=== PATIENT | male | born 1955 | race Caucasian/White ===

== ENCOUNTER 2016-09-11 18:36 | Emergency (ER) | payer MEDICARE, MEDICAID ==
[~2016-09-11] VITALS: Ht 172.7 cm; Wt 81.6 kg
[~2016-09-11 18:36] MED LIST: ATEN25TA PO; ATEN50TA PO; BNZT1T PO; CLOZ100T7 PO; CLOZ150T PO; CLOZAPINE PO; COGENTIN PO; FURO20TA4; FURO20TA4 PO; KCL20TCR PO; PRM25T PO; TRAM50TA2 PO; TRM50T PO; [UNRECOGNIZED DRUG - REMARK]
[2016-09-11] MEDS ORDERED: RT-ALBUTEROL/IPRATROPIUM 3 ML (DUONEB) VIAL INH ONE (19:00)
[2016-09-11] MEDS ORDERED: NS IV 1000 ML 1,000 ML IV SCH ×2 (19:00→21:15)
--- NOTE | 2016-09-11 19:02 | ED Cough/URI ---
General Chief Complaint: Cough/Cold/Flu Symptoms Stated Complaint: WEAKNESS, COUGHING Source: patient Exam Limitations: no limitations History of Present Illness Time seen by provider: 19:01 Initial Comments To ER with a cough and feeling poorly. This is been ongoing for several days. Cough is productive. Denies fevers. He is accompanied to ER by his ex- who does most of the speaking for him. He is schizophrenic and lives alone and is likely noncompliant with his medications. He does smoke 2 packs of cigarettes per day according to his ex- Nuha. He reports to me that he did stop taking his medication "several days ago". Timing/Duration: constant Severity/Quality: productive cough Prior Episodes/Possible Cause: no prior episodes Associated Symptoms: cough Allergies and Home Medications Allergies Coded Allergies: No Known Drug Allergies (Unverified , 03/21/12) Home Medications Atenolol 25 Mg Tablet 25 MG PO DAILY (Reported) Benztropine Mesylate 1 Mg Tab 1 MG PO BID (Reported) Clozapine 100 Mg Tablet 250 MG PO HS (Reported) TAKES 2 & 1/2 (100MG) TABLETS Clozapine 100 Mg Tablet 100 MG PO AM (Reported) Furosemide 20 Mg Tablet 20 MG PO DAILY (Reported) Potassium Chloride 20 Meq Tab #30 20 MEQ PO BID Prescribed by: TERRY SIFUENTES on 03/24/15 0725 Tramadol Hcl 50 Mg Tab 50 MG PO Q12H PRN PRN PAIN (Reported) Constitutional: see HPI malaise weakness EENTM: see HPI Respiratory: see HPI cough Cardiovascular: no symptoms reported Genitourinary: no symptoms reported Musculoskeletal: no symptoms reported Skin: no symptoms reported Psychiatric/Neurological: No Symptoms Reported Hematologic/Lymphatic: No Symptoms Reported Immunological/Allergic: no symptoms reported Past Kpsbnfa-Tkllkc-Jqtftu Hx Patient Social History Alcohol Use: Denies Use Recreational Drug Use: No Smoking Status: Current Everyday Smoker Recent Foreign Travel: No Contact w/Someone Who Travel: No Recent Hopitalizations: Yes Physical Abuse Screen: No Sexual Abuse: No Immunizations Up To Date Tetanus Booster (TDap): Unknown PED Vaccines UTD: No Surgeries HX Surgeries: Yes Respiratory Hx Respiratory Disorders: Yes Respiratory Disorders: Sleep Apnea, COPD Cardiovascular Hx Cardiac Disorders: No Neurological Hx Neurological Disorders: No Reproductive System Hx Reproductive Disorders: No Genitourinary Hx Genitourinary Disorders: No Gastrointestinal Hx Gastrointestinal Disorders: Yes (colon resection? pt not sure what was done) Musculoskeletal Hx Musculoskeletal Disorders: Yes Musculoskeletal Disorders: Chronic Back Pain Endocrine Hx Endocrine Disorders: No HEENT HX ENT Disorders: No Cancer Hx Cancer: No Psychosocial Hx Psychiatric Problems: Yes (PARANOID SCHIZOPHRENIC) Behavioral Health Disorders: Sleep Difficulties, Anxiety, Schizophrenia Integumentary HX Skin/Integumentary Disorder: No Blood Transfusions Hx Blood Disorders: No Family Medical History Significant Family History: No Pertinent Family Hx Family Medial History: Physical Exam Vital Signs Vital Sign - Last 12Hours 09/11/16 09/11/16 18:57 19:10 Temp 97.1 Pulse 94 Resp 18 B/P 130/79 Pulse Ox 93 O2 Delivery Room Air Capillary Refill : General Appearance: WD/WN no apparent distress Eyes: Bilateral Eye EOMI, Bilateral Eye Normal Inspection, Bilateral Eye PERRL HEENT: PERRL/EOMI normal ENT inspection Neck: non-tender full range of motion Respiratory: no respiratory distress no accessory muscle use rhonchi wheezing Cardiovascular: regular rate, rhythm no murmur Gastrointestinal: normal bowel sounds non tender soft Extremities: normal range of motion non-tender Neurologic/Psychiatric: alert normal mood/affect oriented x 3 Skin: normal color warm/dry Progress/Results/Core Measures Results/Orders Lab Results Laboratory Tests Test 09/11/16 19:06 09/11/16 21:45 Range/Units Alanine Aminotransferase (ALT/SGPT) 20 0-55 U/L Albumin 4.3 3.2-4.5 G/DL Alkaline Phosphatase 134 40-136 U/L Anion Gap 16 H 5-14 MMOL/L Aspartate Amino Transf (AST/SGOT) 22 5-34 U/L BUN/Creatinine Ratio 25 Band Neutrophils 3 % Basophils # (Auto) 0.0 0.0-0.1 10^3/uL Basophils % (Manual) 0 % Basophils (%) (Auto) 0 0-10 % Blood Morphology Comment NORMAL Blood Urea Nitrogen 15 7-18 MG/DL Calcium Level 9.1 8.5-10.1 MG/DL Carbon Dioxide Level 19 L 21-32 MMOL/L Chloride Level 108 H 98-107 MMOL/L Creatinine 0.61 0.60-1.30 MG/DL Eosinophils # (Auto) 0.0 0.0-0.3 10^3/uL Eosinophils % (Manual) 0 % Eosinophils (%) (Auto) 0 0-10 % Estimat Glomerular Filtration Rate > 60 Glucose Level 89 70-105 MG/DL Hematocrit 46 40-54 % Hemoglobin 16.3 13.3-17.7 G/DL Lymphocytes # (Auto) 1.8 1.0-4.0 X 10^3 Lymphocytes % (Manual) 21 % Lymphocytes (%) (Auto) 11 L 12-44 % Mean Corpuscular Hemoglobin 32 25-34 PG Mean Corpuscular Hemoglobin Concent 35 32-36 G/DL Mean Corpuscular Volume 90 80-99 FL Mean Platelet Volume 8.4 7.4-10.4 FL Monocytes # (Auto) 1.5 H 0.0-1.0 X 10^3 Monocytes % (Manual) 5 % Monocytes (%) (Auto) 9 0-12 % Neutrophils # (Auto) 13.3 H 1.8-7.8 X 10^3 Neutrophils % (Manual) 71 % Neutrophils (%) (Auto) 80 H 42-75 % Phenytoin (Dilantin) Level < 0.5 L 10.0-20.0 UG/ML Platelet Count 233 130-400 10^3/uL Potassium Level 3.8 3.6-5.0 MMOL/L Red Blood Count 5.13 4.35-5.85 10^6/uL Red Cell Distribution Width 13.1 10.0-14.5 % Sodium Level 143 135-145 MMOL/L Total Bilirubin 1.0 0.1-1.0 MG/DL Total Protein 6.5 6.4-8.2 G/DL White Blood Count 16.6 H 4.3-11.0 10^3/uL Ur Tricyclic Antidepressants Screen NEGATIVE NEGATIVE Urine Amphetamines Screen NEGATIVE NEGATIVE Urine Bacteria NONE /HPF Urine Barbiturates Screen POSITIVE H NEGATIVE Urine Benzodiazepines Screen NEGATIVE NEGATIVE Urine Bilirubin NEGATIVE NEGATIVE Urine Cannabinoids Screen NEGATIVE NEGATIVE Urine Casts NONE /LPF Urine Clarity SLIGHTLY CLOUDY Urine Cocaine Screen NEGATIVE NEGATIVE Urine Color YELLOW Urine Crystals NONE /LPF Urine Culture Indicated NO Urine Glucose (UA) NEGATIVE NEGATIVE Urine Ketones 4+ H NEGATIVE Urine Leukocyte Esterase 2+ H NEGATIVE Urine Methadone Screen NEGATIVE NEGATIVE Urine Methamphetamines Screen NEGATIVE NEGATIVE Urine Mucus NEGATIVE /LPF Urine Nitrite NEGATIVE NEGATIVE Urine Opiates Screen NEGATIVE NEGATIVE Urine Oxycodone Screen NEGATIVE NEGATIVE Urine Phencyclidine Screen NEGATIVE NEGATIVE Urine Propoxyphene Screen NEGATIVE NEGATIVE Urine Protein 1+ H NEGATIVE Urine RBC 25-50 H /HPF Urine RBC (Auto) 5+ H NEGATIVE Urine Specific [place] 1.020 1.016-1.022 Urine Urobilinogen 4 H NORMAL MG/DL Urine WBC 2-5 /HPF Urine pH 6 5-9 My Orders Orders-RANDELL BLAKE APRN Cbc With Automated Diff (09/11/16 18:59) Comprehensive Metabolic Panel (09/11/16 18:59) Chest Pa/Lat (2 View) (09/11/16 18:59) Saline Lock/Iv-Start (09/11/16 18:59) Albuterol/Ipra Inhalation Soln (Duoneb I (09/11/16 19:00) Svn Sm Volume Nebulizer Rt-Rfs (09/11/16 18:59) Ns Iv 1000 Ml (Sodium Chloride 0.9%) (09/11/16 19:00) Phenytoin (Dilantin) (09/11/16 19:20) Manual Differential (09/11/16 19:06) Ua Culture If Indicated (09/11/16 19:36) Drug Screen Stat (Urine) (09/11/16 19:36) Ns Iv 1000 Ml (Sodium Chloride 0.9%) (09/11/16 21:15) Amoxicillin/Clavulanate Tablet (Augmenti (09/11/16 22:15) Medications Given in ED Current Medications Medications Dose Ordered Sig/Clare Route Start Time Stop Time Status Last Admin Dose Admin Albuterol/ Ipratropium 3 ml ONCE ONCE INH 09/11/16 19:00 09/11/16 19:01 DC 09/11/16 19:10 3 ML Vital Signs/I&O Vital Sign - Last 12Hours 09/11/16 09/11/16 18:57 19:10 Temp 97.1 Pulse 94 Resp 18 B/P 130/79 Pulse Ox 93 95 O2 Delivery Room Air Diagnostic Imaging Diagonstic Imaging: Xray Plain Films/CT/US/NM/MRI: chest Comments NAME: ARAM CHEN MED REC#: [id number] PT STATUS: REG ER : 1955 PHYSICIAN: RANDELL BLAKE APRN ADMIT DATE: 09/11/16/ER Draft Date of Exam:09/11/16 CHEST PA/LAT (2 VIEW) INDICATION: Cough with flu symptoms. Comparison with 04/10/2015. FINDINGS: PA and lateral views show the lungs to be well-aerated and clear. The heart is not enlarged. The pulmonary vasculature is normal. No pneumothorax or pleural effusion. IMPRESSION: No acute abnormalities. No findings to suggest pneumonia. Dictated on workstation # [id number] Dict: 09/11/16 1929 Trans: 09/11/16 193 MARKO [id number] Interpreted by: MAX HI MD Electronically signed by: Departure Impression Impression: Primary Impression: Dehydration Additional Impressions: Bronchitis Schizophrenia Disposition: HOME, SELF-CARE Condition: Stable (Physical) Departure-Patient Inst. Decision time for Depature: 22:11 Referrals: ROLANDO SIFUENTES MD (PCP/Family) Primary Care Physician Patient Instructions: Acute Bronchitis, Adult (DC) Add. Discharge Instructions: 1. Return to ER for any concerns 2. Follow-up with his doctor next week 3. Antibiotics as directed All discharge instructions reviewed with patient and/or family. Voiced understanding. Scripts Amoxicillin 500 Mg [id number] Mg PO TID #21 TAB Prov:RANDELL BLAKE AS400 PROGRAMMER 09/11/16 RANDELL BLAKE AS400 PROGRAMMER Sep 11, 2016 19:02
[2016-09-11 19:30] LABS: BASOPHILS % (AUTO) 0 % (0-10); EOSINOPHILS % (AUTO) 0 % (0-10); LYMPHOCYTES # (AUTO) 1.8 X 10^3 (1.0-4.0); LYMPHOCYTES % (AUTO) 11 % (12-44); MEAN CORPUSCULAR HEMOGLOBIN 32 PG (25-34); MEAN CORPUSCULAR HGB CONC 35 G/DL (32-36); MEAN CORPUSCULAR VOLUME 90 FL (80-99); MEAN PLATELET VOLUME 8.4 FL (7.4-10.4); MONOCYTES # (AUTO) 1.5 X 10^3 (0.0-1.0); MONOCYTES % (AUTO) 9 % (0-12); NEUTROPHILS # (AUTO) 13.3 X 10^3 (1.8-7.8); NEUTROPHILS % (AUTO) 80 % (42-75); PLATELET COUNT 233 10^3/uL (130-400); RED BLOOD COUNT 5.13 10^6/uL (4.35-5.85); RED CELL DISTRIBUTION WIDTH 13.1 % (10.0-14.5); WHITE BLOOD COUNT 16.6 10^3/uL (4.3-11.0)
[2016-09-11 19:33] LABS: ALANINE AMINOTRANSFERASE 20 U/L (0-55); ALBUMIN 4.3 G/DL (3.2-4.5); ANION GAP 16 MMOL/L (5-14); ASPARTATE AMINO TRANSFERASE 22 U/L (5-34); BLOOD UREA NITROGEN 15 MG/DL (7-18); BUN/CREATININE RATIO 25; CALCIUM 9.1 MG/DL (8.5-10.1); CARBON DIOXIDE 19 MMOL/L (21-32); CHLORIDE 108 MMOL/L (98-107); CREATININE SERUM 0.61 MG/DL (0.60-1.30); GFR ESTIMATED > 60; GLUCOSE 89 MG/DL (70-105); POTASSIUM 3.8 MMOL/L (3.6-5.0); SODIUM 143 MMOL/L (135-145); TOTAL PROTEIN 6.5 G/DL (6.4-8.2)
--- NOTE | 2016-09-11 19:33 | Diagnostic Imaging Report ---
INDICATION: Cough with flu symptoms. Comparison with 04/10/2015. FINDINGS: PA and lateral views show the lungs to be well-aerated and clear. The heart is not enlarged. The pulmonary vasculature is normal. No pneumothorax or pleural effusion. IMPRESSION: No acute abnormalities. No findings to suggest pneumonia. Dictated by: Dictated on workstation # [id number]
[2016-09-11 19:59] LABS: BAND NEUTROPHILS 3 %; BASOPHILS % (MANUAL) 0 %; EOSINOPHILS % (MANUAL) 0 %; LYMPHOCYTES % (MANUAL) 21 %; NEUTROPHILS % (MANUAL) 71 %
[2016-09-11 21:56] LABS: BILIRUBIN,URINE NEGATIVE (NEGATIVE); KETONES,URINE 4+ (NEGATIVE); LEUKOCYTE ESTERASE ,URINE 2+ (NEGATIVE); NITRITE,URINE NEGATIVE (NEGATIVE); PH,URINE 6 (5-9); PROTEIN,URINE 1+ (NEGATIVE); UROBILINOGEN,URINE 4 MG/DL (NORMAL)
[2016-09-11] MEDS ORDERED: AMOX500T2 PO (22:12)
[2016-09-11] MEDS ORDERED: AUGMENTIN 875 MG TAB (AMOXICILLIN/CLAVULANATE) PO SCH (22:15)
[2016-09-11 22:32] VITALS: BP 141/70
== END 2016-09-11 22:32 | disposition home or self-care (01) ==
LOC: EDUNIT# 18:36 → ER 18:38
DX: E86.0 Dehydration (principal); J44.0 Chronic obstructive pulmonary disease with (acute) lower respiratory infection; F20.9 Schizophrenia, unspecified; F17.210 Nicotine dependence, cigarettes, uncomplicated; Z79.899 Other long term (current) drug therapy
CPT/HCPCS: 36415; 71020; 80053; 80185; 80306; 81000; 85007; 85027; 94640; 96360; 96361

== ENCOUNTER 2017-10-23 18:58 | Emergency (ER) | payer MEDICARE, MEDICAID ==
[~2017-10-23] VITALS: Ht 167.6 cm; Wt 104.3 kg
[~2017-10-23 18:58] MED LIST changes: +AMOX500T2 PO
--- NOTE | 2017-10-23 19:37 | ED General ---
General Chief Complaint: General Problems/Pain Stated Complaint: "BUG INFESTATION" Source of Information: Patient (SPEECH VERY RAPID, MUMBLED AND MOSTLY UNINTELLIGIBLE--APPEARS TO BE UNDER THE INFLUENCE OF SOME SUBSTANCE/S.PT ALSO EVADES AND SOMETIMES REFUSES TO ANSWER QUESTIONS), Old Records, Other (EX- ARRIVES WITH PT ( SHE ALSO LIVES IN SAME [place] PT AND IS [employer]PER[employer]) AND SHE DOES SOME OF TALKING FOR PT) History of Present Illness Date Seen by Provider: Oct 23, 2017 Time Seen by Provider: 19:17 Initial Comments PT ARRIVES VIA POV WITH EX- SPEECH IS EXTREMELY DIFFICULT TO UNDERSTAND, RAPID/FAST/MUMBLING AND MOSTLY UNINTELLIGIBLE PT STATES "PARASITIC BEINGS ARE INVADING MY BODY" "THROUGH MY NOSE-THEY ARE HIDING IN MY NOSE AND GOING DOWN MY THROAT" UNABLE TO UNDER STAND LITTLE ELSE OF WHAT PT IS SAYING, BUT CAN MAKE OUT A FEW WORDS--"CEREBRAL CORTEX" AND "HYPOTHALAMUS" PT THOUGHT HE HAD LICE ( ALTHOUGH NO SYMPTOMS ON SCALP/HAIR) AND HAS TREATED HIMSELF WITH MEDICATION FOR HEAD LICE, AND TREATED HIS BEDDING AND CLOTHING FOR LICE NO ITCHING OR SORES ON SKIN HAS BEEN PUTTING GARLIC, OLIVE OIL AND VEGETABLE OIL IN HIS NOSE TO TRY TO KILL THEM PT DID FORCEFULLY COUGH UP A PIECE OF WHITE RICE--THINKS THAT IS PARASITE--EX- STATES HE ATE [employer] FOR DINNER TONIGHT. PT STATES SYMPTOMS HAVE BEEN GOING ON FOR 2-3 DAYS PT DENIES ANY DRUG USE. PT HAS HISTORY OF PARANOID SCHIZOPHRENIA AND NON-COMPLIANCY--NO PSYCH CARE, ONLY SEES DR. SIFUENTES. EX- STATES THIS IS PT'S NORMAL MENTATION/BEHAVIOR. SHE STATES HE HAS BEEN OFF ALL HIS ANTI-PSYCHOTICS FOR AT LEAST A YEAR. PCP: DR. SIFUENTES Allergies and Home Medications Allergies Coded Allergies: No Known Drug Allergies (Unverified , 03/21/12) Home Medications Amoxicillin 500 Mg Tablet, 500 MG PO TID Prescribed by: RANDELL BLAKE on 09/11/162211 Atenolol 25 Mg Tablet, 25 MG PO DAILY, (Reported) Benztropine Mesylate 1 Mg Tab, 1 MG PO BID, (Reported) Clozapine 100 Mg Tablet, 250 MG PO HS, (Reported) TAKES 2 & 1/2 (100MG) TABLETS Clozapine 100 Mg Tablet, 100 MG PO AM, (Reported) Fluconazole 40 Mg/1 Ml Susp.recon, 5 ML PO DAILY Prescribed by: KELLY MA on 10/23/172103 Furosemide 20 Mg Tablet, 20 MG PO DAILY, (Reported) Potassium Chloride 20 Meq Tab, 20 MEQ PO BID Prescribed by: TERRY SIFUENTES on 03/24/15 0725 Tramadol Hcl 50 Mg Tab, 50 MG PO Q12H PRN for PAIN, (Reported) Constitutional: no symptoms reported EENTM: see HPI Respiratory: no symptoms reported, No cough, No short of breath Cardiovascular: no symptoms reported Gastrointestinal: no symptoms reported, No abdominal pain, No loss of appetite , No nausea, No vomiting Genitourinary: no symptoms reported, other (STTATES HE WAS RECENTLY TREATED FOR UTI--[place] ANTIBIOTICS,AND NO SYMPTOMS NOW) Musculoskeletal: no symptoms reported Skin: see HPI, No pruritus, No rash Psychiatric/Neurological: See HPI, Denies Headache Hematologic/Lymphatic: No Symptoms Reported Immunological/Allergic: no symptoms reported Past Ouegxml-Bpectp-Lhdufm Hx Patient Social History Alcohol Use: Past History Recreational Drug Use: No Smoking Status: Current Everyday Smoker (2 PPD) Recent Foreign Travel: No Contact w/Someone Who Travel: No Recent Hopitalizations: Yes Immunizations Up To Date Tetanus Booster (TDap): Unknown PED Vaccines UTD: No Surgeries History of Surgeries: Yes (EGD/COLONOSCOPY; COLON RESECTION FOR BENIGN TUMOR; PILONIDAL CYST X 2) Surgeries: Abdominal, Appendectomy, Bowel Surgery Respiratory History of Respiratory Disorde: Yes Respiratory Disorders: Sleep Apnea, COPD Cardiovascular History of Cardiac Disorders: Yes Cardiac Disorders: Chronic Edema/Swelling Neurological History of Neurological Disord: No Reproductive System Hx Reproductive Disorders: No Genitourinary History of Genitourinary Disor: No Gastrointestinal History of Gastrointestinal Di: Yes (COLON RESECTION FOR BENIGN TUMOR) Musculoskeletal History of Musculoskeletal Dis: Yes Musculoskeletal Disorders: Chronic Back Pain Endocrine History of Endocrine Disorders: No HEENT History of HEENT Disorders: No Cancer History of Cancer: No Psychosocial History of Psychiatric Problem: Yes (NON-COMPLIANT WITH MEDICATIONS) Behavioral Health Disorders: Sleep Difficulties, Anxiety, Schizophrenia Integumentary History of Skin or Integumenta: No Blood Transfusions History of Blood Disorders: No Family Medical History Significant Family History: No Pertinent Family Hx Family Medial History: Physical Exam Vital Signs Vital Signs - First Documented 10/23/17 19:31 Temp 99.0 Pulse 123 Resp 20 B/P (MAP) 200/128 (152) Pulse Ox 98 Capillary Refill : General Appearance: Other (UNKEMPT, CONSTANT MOVEMENTS--CANNOT SIT OR LAY OR STAND STILL, SPEECH VERY RAPID, MUMBLING AND MOSTLY UNINTELLIGIBLE. ) HEENT: PERRL/EOMI, TMs Normal, Other (POOR DENTITION ; DRY ORAL MUCOSA. POSTERIOR PHARYNX WITH WHITE COATING, BUT NOT TONGUE OR BUCCALMUCOSA OR TONSILS. ) Neck: Full Range of Motion, Normal Inspection, Non Tender, Supple Respiratory: Normal Breath Sounds, No Accessory Muscle Use, No Respiratory Distress Cardiovascular: Regular Rate, Rhythm, No Edema, No Murmur, Normal Peripheral Pulses Gastrointestinal: Non Tender, Soft Back: Normal Inspection Extremity: Normal Range of Motion Neurologic/Psychiatric: Alert, No Motor/Sensory Deficits (GROSSLY INTACT), stave block splitter II-XII Norm as Tested, Other Skin: Normal Color, Warm/Dry, Other (NO SORES OR EVIDENCE OF ANY INSECT BITES OR LICE OR OTHER PARASITES) Progress/Results/Core Measures Suspected Sepsis SIRS Temperature: Pulse: Respiratory Rate: Laboratory Tests 10/23/17 19:54: White Blood Count 10.5 Blood Pressure / Mean: Laboratory Tests 10/23/17 19:54: Creatinine 0.82, Platelet Count 250, Total Bilirubin 0.4 Results/Orders Lab Results Laboratory Tests Test 10/23/17 19:54 10/23/17 20:28 Range/Units White Blood Count 10.5 4.3-11.0 10^3/uL Red Blood Count 4.90 4.35-5.85 10^6/uL Hemoglobin 16.0 13.3-17.7 G/DL Hematocrit 46 40-54 % Mean Corpuscular Volume 93 80-99 FL Mean Corpuscular Hemoglobin 33 25-34 PG Mean Corpuscular Hemoglobin Concent 35 32-36 G/DL Red Cell Distribution Width 12.4 10.0-14.5 % Platelet Count 250 130-400 10^3/uL Mean Platelet Volume 8.7 7.4-10.4 FL Neutrophils (%) (Auto) 58 42-75 % Lymphocytes (%) (Auto) 29 12-44 % Monocytes (%) (Auto) 11 0-12 % Eosinophils (%) (Auto) 1 0-10 % Basophils (%) (Auto) 1 0-10 % Neutrophils # (Auto) 6.2 1.8-7.8 X 10^3 Lymphocytes # (Auto) 3.0 1.0-4.0 X 10^3 Monocytes # (Auto) 1.2 H 0.0-1.0 X 10^3 Eosinophils # (Auto) 0.1 0.0-0.3 10^3/uL Basophils # (Auto) 0.1 0.0-0.1 10^3/uL Sodium Level 138 135-145 MMOL/L Potassium Level 3.8 3.6-5.0 MMOL/L Chloride Level 101 98-107 MMOL/L Carbon Dioxide Level 26 21-32 MMOL/L Anion Gap 11 5-14 MMOL/L Blood Urea Nitrogen 11 7-18 MG/DL Creatinine 0.82 0.60-1.30 MG/DL Estimat Glomerular Filtration Rate > 60 BUN/Creatinine Ratio 13 Glucose Level 124 H 70-105 MG/DL Calcium Level 9.3 8.5-10.1 MG/DL Total Bilirubin 0.4 0.1-1.0 MG/DL Aspartate Amino Transf (AST/SGOT) 20 5-34 U/L Alanine Aminotransferase (ALT/SGPT) 21 0-55 U/L Alkaline Phosphatase 133 40-136 U/L Total Protein 6.6 6.4-8.2 GM/DL Albumin 4.1 3.2-4.5 GM/DL TSH [place] Testing 1.81 0.35-4.94 UIU/ML Serum Alcohol < 10 <10 MG/DL Urine Color YELLOW Urine Clarity CLEAR Urine pH 7 5-9 Urine Specific [place] 1.010 L 1.016-1.022 Urine Protein NEGATIVE NEGATIVE Urine Glucose (UA) NEGATIVE NEGATIVE Urine Ketones NEGATIVE NEGATIVE Urine Nitrite NEGATIVE NEGATIVE Urine Bilirubin NEGATIVE NEGATIVE Urine Urobilinogen NORMAL NORMAL MG/DL Urine Leukocyte Esterase 1+ H NEGATIVE Urine RBC (Auto) 2+ H NEGATIVE Urine RBC 2-5 H /HPF Urine WBC 0-2 /HPF Urine Squamous Epithelial Cells 0-2 /HPF Urine Renal Epithelial Cells NONE /HPF Urine Crystals NONE /LPF Urine Bacteria NEGATIVE /HPF Urine Casts NONE /LPF Urine Mucus NEGATIVE /LPF Urine Culture Indicated NO Urine Opiates Screen NEGATIVE NEGATIVE Urine Oxycodone Screen NEGATIVE NEGATIVE Urine Methadone Screen NEGATIVE NEGATIVE Urine Propoxyphene Screen NEGATIVE NEGATIVE Urine Barbiturates Screen NEGATIVE NEGATIVE Ur Tricyclic Antidepressants Screen POSITIVE H NEGATIVE Urine Phencyclidine Screen NEGATIVE NEGATIVE Urine Amphetamines Screen NEGATIVE NEGATIVE Urine Methamphetamines Screen NEGATIVE NEGATIVE Urine Benzodiazepines Screen NEGATIVE NEGATIVE Urine Cocaine Screen NEGATIVE NEGATIVE Urine Cannabinoids Screen NEGATIVE NEGATIVE My Orders Orders - KELLY MA DO Alcohol (10/23/17 19:24) Cbc With Automated Diff (10/23/17 19:24) Comprehensive Metabolic Panel (10/23/17 19:24) Drug Screen Stat (Urine) (10/23/17 19:24) Thyroid Analyzer (10/23/17 19:24) Ua Culture If Indicated (10/23/17 19:24) Throat Culture (10/23/17 19:24) Ct Head Wo (10/23/17 19:43) Vital Signs/I&O Vital Sign - Last 12Hours 10/23/17 10/23/17 19:31 21:12 Temp 99.0 99.0 Pulse 123 123 Resp 20 20 B/P (MAP) 200/128 (152) 200/128 (152) Pulse Ox 98 98 Capillary Refill : Progress Note : Progress Note NO DETERIORATION IN PT'S CONDITION DURING ER STAY Diagnostic Imaging Comments CT HEAD--NO ACUTE PROCESS, PER RADIOLOGIST REPORT Reviewed: Reviewed by Me Departure Impression Impression: Primary Impression: Thrush, oral Additional Impressions: Paranoid schizophrenia, chronic condition PSYCHOGENIC PARASITOSIS Delusions of parasitosis Non-compliance Disposition: 01 HOME, SELF-CARE Condition: Stable Departure-Patient Inst. Referrals: ROLANDO SIFUENTES MD (PCP/Family) Primary Care Physician Patient Instructions: Thrush (DC) Add. Discharge Instructions: FOLLOW UP WITH DR. SIFUENTES THIS WEEK FOR FURTHER CARE SALINE SPRAY IN NOSE 3-4 TIMES A DAY NEEDED FOR SYMPTOMS All discharge instructions reviewed with patient and/or family. Voiced understanding. Scripts Fluconazole (Diflucan) 40 Mg/1 Ml Susp.recon 5 ML PO DAILY for 15 Days, #75 ML Prov: KELLY MA DO 10/23/17 KELLY MA DO Oct 23, 2017 19:37
[2017-10-23 20:18] LABS: BASOPHILS # (AUTO) 0.1 10^3/uL (0.0-0.1); BASOPHILS % (AUTO) 1 % (0-10); EOSINOPHILS # (AUTO) 0.1 10^3/uL (0.0-0.3); EOSINOPHILS % (AUTO) 1 % (0-10); HEMATOCRIT 46 % (40-54); LYMPHOCYTES % (AUTO) 29 % (12-44); MEAN CORPUSCULAR HEMOGLOBIN 33 PG (25-34); MEAN CORPUSCULAR HGB CONC 35 G/DL (32-36); MEAN CORPUSCULAR VOLUME 93 FL (80-99); MEAN PLATELET VOLUME 8.7 FL (7.4-10.4); MONOCYTES # (AUTO) 1.2 X 10^3 (0.0-1.0); MONOCYTES % (AUTO) 11 % (0-12); NEUTROPHILS # (AUTO) 6.2 X 10^3 (1.8-7.8); NEUTROPHILS % (AUTO) 58 % (42-75); PLATELET COUNT 250 10^3/uL (130-400); RED CELL DISTRIBUTION WIDTH 12.4 % (10.0-14.5); WHITE BLOOD COUNT 10.5 10^3/uL (4.3-11.0)
--- NOTE | 2017-10-23 20:20 | Diagnostic Imaging Report ---
PROCEDURE: CT head without contrast. TECHNIQUE: Multiple contiguous axial images were obtained through the brain without the use of intravenous contrast. DATE: 10/23/2017. COMPARISON: MRI brain 04/11/2015. CT head 04/10/2015. INDICATION: 62-year-old male, altered mental status. FINDINGS: There are areas of low-attenuation in the periventricular white matter which are nonspecific but most likely relate to changes of chronic small vessel ischemic disease. The ventricles and cerebral spinal fluid spaces are of normal size and configuration for the patient's age. There is no mass effect or midline shift. There is no acute intracranial hemorrhage. There is no abnormal extra-axial fluid collection. The visualized portions of the paranasal sinuses, mastoid air cells and middle ears are well aerated. IMPRESSION: 1. No identified acute intracranial abnormality. 2. Mild probable changes of chronic small vessel ischemic disease. Dictated by: Dictated on workstation # [id number]
[2017-10-23 20:24] LABS: ALANINE AMINOTRANSFERASE 21 U/L (0-55); ALBUMIN 4.1 GM/DL (3.2-4.5); ALKALINE PHOSPHATASE 133 U/L (40-136); BILIRUBIN,TOTAL 0.4 MG/DL (0.1-1.0); BUN/CREATININE RATIO 13; CALCIUM 9.3 MG/DL (8.5-10.1); CARBON DIOXIDE 26 MMOL/L (21-32); CHLORIDE 101 MMOL/L (98-107); CREATININE SERUM 0.82 MG/DL (0.60-1.30); GFR ESTIMATED > 60; GLUCOSE 124 MG/DL (70-105); POTASSIUM 3.8 MMOL/L (3.6-5.0); SODIUM 138 MMOL/L (135-145); TOTAL PROTEIN 6.6 GM/DL (6.4-8.2)
[2017-10-23 20:33] LABS: BILIRUBIN,URINE NEGATIVE (NEGATIVE); CLARITY,URINE CLEAR; COLOR,URINE YELLOW; GLUCOSE, URINE (UA) NEGATIVE (NEGATIVE); KETONES,URINE NEGATIVE (NEGATIVE); LEUKOCYTE ESTERASE ,URINE 1+ (NEGATIVE); NITRITE,URINE NEGATIVE (NEGATIVE); PH,URINE 7 (5-9); PROTEIN,URINE NEGATIVE (NEGATIVE); UROBILINOGEN,URINE NORMAL (NORMAL)
[2017-10-23 20:44] LABS: TSH (THYROID ANALYZER) 1.81 UIU/ML (0.35-4.94)
[2017-10-23 20:47] LABS: BACTERIA,URINE NEGATIVE /HPF; SQUAMOUS EPITHELIAL CELL,UR 0-2 /HPF; WBC,URINE 0-2 /HPF
[2017-10-23 20:49] LABS: AMPHETAMINE SCREEN, URINE NEGATIVE (NEGATIVE); BENZODIAZEPINES SCREEN URINE NEGATIVE (NEGATIVE); COCAINE SCREEN URINE NEGATIVE (NEGATIVE)
[2017-10-23 20:50] LABS: BARBITURATE SCREEN URINE NEGATIVE (NEGATIVE); CANNABINOID SCREEN, URINE NEGATIVE (NEGATIVE); METHADONE STAT NEGATIVE (NEGATIVE); METHAMPHETAMINE SCREEN URINE S NEGATIVE (NEGATIVE); OPIATE SCREEN URINE NEGATIVE (NEGATIVE); OXYCODONE STAT NEGATIVE (NEGATIVE); PROPOXYPHENE STAT NEGATIVE (NEGATIVE); TRICYCLIC ANTIDEPRESSANTS SCRE POSITIVE (NEGATIVE)
[2017-10-23] MEDS ORDERED: NYST1000 PO (21:03)
[2017-10-23] MEDS ORDERED: FLUC40SU PO (21:04)
[2017-10-23 21:12] VITALS: BP 200/128
== END 2017-10-23 21:12 | disposition home or self-care (01) ==
LOC: EDUNIT# 18:58 → ER 19:00
DX: B37.0 Candidal stomatitis (principal); F20.0 Paranoid schizophrenia; F22 Delusional disorders; F41.9 Anxiety disorder, unspecified; F17.210 Nicotine dependence, cigarettes, uncomplicated; Z91.14 Patient's other noncompliance with medication regimen; Z86.012 Personal history of benign carcinoid tumor; Z90.49 Acquired absence of other specified parts of digestive tract
CPT/HCPCS: 36415; 70450; 80053; 80306; 80320; 81000; 84443; 85025; 87070

== ENCOUNTER 2018-05-30 05:32 | Outpatient (CLI) | payer MEDICARE, MEDICAID ==
[~2018-05-30] VITALS: Ht 167.6 cm; Wt 104.3 kg
[~2018-05-30 05:32] MED LIST changes: +FLUC40SU PO; +NYST1000 PO
[2018-05-30] MEDS ORDERED: ST.300TA3 PO (11:42)
== END 2018-05-30 11:58 | disposition home or self-care (01) ==
LOC: PREOP 05:32
PROVIDERS: ATTEND Surgery
DX: Z01.818 Encounter for other preprocedural examination (principal)

== ENCOUNTER 2018-08-02 12:15 | Outpatient (CLI) | payer MEDICARE ==
[~2018-08-02] VITALS: Ht 167.6 cm; Wt 104.3 kg
[~2018-08-02 12:15] MED LIST changes: +ST.300TA3 PO
[2018-08-02] MEDS ORDERED: AMIT25TA9 PO (12:23)
[2018-08-03] MEDS ORDERED: HYDR-34 PO (15:54)
== END 2018-08-02 12:33 ==
LOC: PREOP 12:15
PROVIDERS: ATTEND Surgery
DX: Z01.818 Encounter for other preprocedural examination (principal)

== ENCOUNTER 2018-08-03 10:26 | Inpatient (IN) | payer MEDICARE ==
[~2018-08-03] VITALS: Ht 170.2 cm; Wt 97.5 kg
[~2018-08-03 10:26] MED LIST changes: +AMIT25TA9 PO
--- NOTE | 2018-08-03 10:38 | Progress Note-Pre Operative ---
Pre-Operative Progress Note H&P Reviewed The H&P was reviewed, patient examined and no changes noted. Date Seen by Provider: Aug 03, 2018 Time Seen by Provider: 10: Date H&P Reviewed: Aug 03, 2018 Time H&P Reviewed: 10:30 Pre-Operative Diagnosis: symptomatic reducible ventral abd inc hernia AKIN DANIEL MD Aug 03, 2018 10:38
[2018-08-03] MEDS ORDERED: morphine INJ 10 MG/ML 1ML (SYR OR VIAL) IVP PRN (10:45)
[2018-08-03] MEDS ORDERED: ONDANSETRON 4 MG/2 ML (SDV) Z0FRAN IVP PRN ×2 (10:45→16:15)
[2018-08-03] MEDS ORDERED: ACETAMINOPHEN 325 MG TABLET PO PRN (10:45)
[2018-08-03] MEDS ORDERED: LACTATED RINGERS 1,000 ML IV PRN ×2 (10:52)
[2018-08-03 11:10] VITALS: BP 148/97
[2018-08-03 11:29] LABS: BASOPHILS % (AUTO) 0 % (0-10); EOSINOPHILS # (AUTO) 0.1 10^3/uL (0.0-0.3); EOSINOPHILS % (AUTO) 1 % (0-10); HEMATOCRIT 50 % (40-54); HEMOGLOBIN 17.8 G/DL (13.3-17.7); LYMPHOCYTES # (AUTO) 1.9 X 10^3 (1.0-4.0); LYMPHOCYTES % (AUTO) 29 % (12-44); MEAN CORPUSCULAR HEMOGLOBIN 33 PG (25-34); MEAN CORPUSCULAR HGB CONC 35 G/DL (32-36); MEAN CORPUSCULAR VOLUME 92 FL (80-99); MONOCYTES # (AUTO) 0.6 X 10^3 (0.0-1.0); MONOCYTES % (AUTO) 9 % (0-12); NEUTROPHILS # (AUTO) 3.9 X 10^3 (1.8-7.8); NEUTROPHILS % (AUTO) 61 % (42-75); PLATELET COUNT 212 10^3/uL (130-400); RED BLOOD COUNT 5.47 10^6/uL (4.35-5.85); RED CELL DISTRIBUTION WIDTH 13.2 % (10.0-14.5); WHITE BLOOD COUNT 6.5 10^3/uL (4.3-11.0)
[2018-08-03] MEDS ORDERED: fentaNYL INJECTION 100 MCG/2 ML AMP ONE (11:38)
[2018-08-03] MEDS ORDERED: MIDAZOLAM 2 MG/2 ML (VERSED) VIAL ONE (11:38)
[2018-08-03] MEDS ORDERED: FAMOTIDINE 20MG/2ML IV (PEPCID) IVP ONE (11:45)
[2018-08-03] MEDS ORDERED: FAMOTIDINE 20MG/2ML IV (PEPCID) ONE (11:50)
[2018-08-03] MEDS ORDERED: BUP/EPI 0.5% 1:200,000 (SENSORCAINE) 30 ML VIAL ONE (12:04)
[2018-08-03] MEDS ORDERED: LIDOCAINE PF 2% 5 ML (XYLOCAINE) VIAL ONE (12:18)
[2018-08-03] MEDS ORDERED: SEVOFLURANE (ULTANE) 15 ML INHAL SOLN ONE ×8 (12:18→15:48)
[2018-08-03] MEDS ORDERED: SUCCINYLCHOLINE INJ 100 MG/5 ML SYR ONE (12:18)
[2018-08-03] MEDS ORDERED: ONDANSETRON 4 MG/2 ML (SDV) Z0FRAN ONE (12:18)
[2018-08-03] MEDS ORDERED: proPOfol 200 MG/20 ML (DIPRIVAN) VIAL IV ONE (12:18)
[2018-08-03] MEDS ORDERED: DEXAMETHASONE 10 MG/ML (DECADRON) 1 ML VIAL ONE (12:18)
[2018-08-03] MEDS ORDERED: CITRIC ACID/SOB CIT (BICITRA) 30 ML UDC PO ONE (12:30)
[2018-08-03] MEDS ORDERED: ROCURONIUM 10 MG/ML 5 ML SYRINGE IV ONE (13:26)
[2018-08-03] MEDS: ceFAZolin INJECTION 1,000 MG in NS (IVPB) 50 ML IV ONE ×2 (14:02→14:30)
[2018-08-03] MEDS ORDERED: ATROPINE INJ 0.4 MG/ML SDV ONE (14:47)
[2018-08-03] MEDS ORDERED: GLYCOPYRROLATE 0.2 MG/ML (ROBINUL) 2 ML VIAL ONE ×2 (14:47→15:27)
[2018-08-03] MEDS ORDERED: NEOSTIGMINE 1 MG/ML 5 ML SYRINGE ONE (15:31)
--- NOTE | 2018-08-03 15:50 | Progress Note-Post Operative ---
Post-Operative Progess Note Surgeon (s)/Inspector Aide (s) Surgeon AKIN DANIEL MD Inspector Aide: joaquin srinivasan PLASTIC FABRICATOR Pre-Operative Diagnosis symptomatic reducible ventral abd inc hernia Post-Operative Diagnosis symptomatic reducible recurrent ventral abd inc hernia. Procedure & Operative Findings Date of Procedure 08/03/18 Procedure Performed/Findings exploratory laparotomy, explantation mesh, open repair recurrent incisional hernia with mesh Anesthesia Type GET Estimated Blood Loss Estimated blood loss (mL): minimal Specimens/Packing Specimens Removed hernia sac and mesh. AKIN DANIEL MD Aug 03, 2018 15:50
[2018-08-03] MEDS ORDERED: HYDR-34 PO (15:54)
--- NOTE | 2018-08-03 15:56 | Discharge Inst-Surgical ---
D/C Lap Instructions-MARÍA New, Converted, or Re-Newed RX: RX on Chart Follow Up Appt in 2 weeks Activity as tolerated No driving for 24 hours No [address] while on pain medications Incentive Spirometry use every 2 hours while awake Regular Diet Symptoms to Report: Fever over 101 degree F, Nausea/Vomiting Infection Signs and Symptoms to report: Increased redness, Foul odor of wound, Increased drainage Bathing instructions: May shower Operative Area Clean/Dry; Keep incision clean/dry If any problems/questions: Contact your physician or go to Emergency Room AKIN DANIEL MD Aug 03, 2018 15:56
[2018-08-03] MEDS ORDERED: morphine INJ 10 MG/ML 1ML (SYR OR VIAL) IVP ONE (16:15)
[2018-08-03] MEDS ORDERED: FLU QUADRIvalent (5+ YOA) 2018-2019 (AFLURIA) 0.5 ML IM ONE (18:45)
[2018-08-03] MEDS: oxyCODONE/APAP 5/325MG (PERCOCET 5) TABLET PO PRN (19:27)
--- NOTE | 2018-08-03 20:35 | OPERATIVE REPORT ---
DATE OF SERVICE: 08/03/2018 ATTENDING PRIMARY CARE PHYSICIAN: Dr. Cook. PREOPERATIVE DIAGNOSIS: Symptomatic reducible incisional hernia. POSTOPERATIVE DIAGNOSIS: Symptomatic recurrent reducible incisional hernia. PROCEDURE: Exploratory laparotomy, excision of old mesh, placement and repair of hernia defect with mesh. SURGEON: Akin Daniel MD PSYCHOLOGIST PERSONNEL: Everett Samson APRN. ANESTHESIA: General endotracheal. ESTIMATED BLOOD LOSS: 100 mL. FINDINGS: Old large midline laparotomy incision from a previous hemicolectomy with a symptomatic recurrent incisional hernia identified with large mesh within the hernia sac, which was explanted. DISPOSITION: The patient tolerated the procedure well. INDICATIONS: The patient is a 63-year-old male who was accompanied by his ex- in the office. This gentleman has a history of schizophrenia, does require help and guidance on an everyday basis for normal functioning. He does answer the majority of questions appropriately; however, does go on significant tangents during conversation. He was found to have an incisional hernia and he did not report any previous hernia identified. He states that approximately 20 years ago, a lesion was identified on the colon. Open right hemicolectomy was performed for benign lesion. In the office, he was found to have a palpable lesion, which was of significant size and reducible and painful to palpation consistent with an incisional hernia. Multiple attempts at scheduling the patient for surgery were made; however, the patient did not show up. However, he did this time around. We cannot elicit any further history. However, based on the findings intraoperatively, this was a recurrent incisional hernia due to a large mesh that was encompassing the majority of the recurrent hernia sac. DESCRIPTION OF PROCEDURE: The patient was brought to the operating room, laid supine on the table. After adequate IV pain and sedative medications and general endotracheal intubation, the abdomen was prepped and draped in standard surgical fashion. A 0.5% Marcaine with epinephrine was then used to anesthetize the overlying skin in the midline epigastric region. A vertical skin incision was then made using a 15 blade. The subcutaneous tissue was then dissected using electrocautery. The hernia sac was identified and dissected out. A very hard contracted structure was identified, which shows consistent with old Prolene suture as well as a contracted mesh within the hernia sac. Because of the previous mesh encompassed the majority of the hernia sac, it was decided to proceed with excision of the mesh. We did have to extend the incision inferiorly and proceeded with an exploratory laparotomy and took down adhesions to the mesh and then the entire mesh was explanted using blunt dissection as well as Metzenbaum scissors as well as electrocautery. Good hemostasis was observed and the fascial edges were then cleared off above the fascia using electrocautery. An 11 x 16 cm coated lightweight polypropylene mesh was then placed in the defect and concentrically sutured in a transfascial manner using 0 Prolene sutures without any tension. Good hemostasis was observed. The subcutaneous tissue was then reapproximated using 3-0 Vicryl interrupted sutures. Skin was closed using 4-0 Monocryl running subcuticular suture. Wounds were then cleaned and covered with gauze, tape and abdominal binder. The patient tolerated the procedure well. Due to his history of schizophrenia and the dependence physically and mentally, we will admit him for a 23-hour observation for adequate pain control and for help with ambulation and DVT prophylaxis as well as proper alimentation and medication. Job ID: [id number] DocumentID: [id number] Dictated Date: 08/03/2018 16:04:14 Lead Teacher Date: 08/03/2018 20:35:18 Dictated By: AKIN DANIEL MD MTDD
[2018-08-04 00:24] VITALS: BP 147/64
[2018-08-04 03:47] VITALS: BP 119/66
[2018-08-04 08:00] VITALS: BP 127/55
[2018-08-04] MEDS: oxyCODONE/APAP 5/325MG (PERCOCET 5) TABLET PO PRN (10:01)
--- NOTE | 2018-08-04 13:08 | Progress Note (SOAP) ---
Subjective Date Seen by a Provider: Aug 04, 2018 Time Seen by a Provider: 12:00 Subjective/Events-last exam doing well. ambulating well. tolerating diet. good pain control with PO meds. Objective Exam Vital Signs Date Time Temp Pulse Resp B/P (MAP) Pulse Ox O2 Delivery O2 Flow Rate FiO2 08/04/18 08:00 97.8 100 20 127/55 (79) 94 Room Air 08/04/18 03:47 98.1 95 17 119/66 (83) 95 Room Air 08/04/18 00:24 98.1 101 14 147/64 (91) 94 I & O 08/04/18 07:00 Intake Total 1960 ml Balance 1960 ml Capillary Refill : General Appearance: No Apparent Distress HEENT: PERRL/EOMI Neck: Full Range of Motion Respiratory: Chest Non Tender, Lungs Clear, Normal Breath Sounds Cardiovascular: Regular Rate, Rhythm Gastrointestinal: normal bowel sounds, soft Extremity: Normal Capillary Refill Neurologic/Psychiatric: Alert, Oriented x3 Skin: Normal Color Lymphatic: No Adenopathy Assessment/Plan Assessment/Plan Assess & Plan/Chief Complaint s/p expl lap, expantation mesh, repair recurrent inc hernia with mesh. cont ambulation, home soon. no lifting/exertion 2 weeks. Clinical Quality Measures DVT/VTE Risk/Contraindication: Risk Factor Score Per Nursin RFS Level Per Nursing on Admit: 4+=Very High AKIN DANIEL MD Aug 04, 2018 13:08
--- NOTE | 2018-08-04 14:14 | Anesthesia-General Post-Op ---
General Patient Condition Mental Status/LOC: Same as Preop Cardiovascular: Satisfactory Nausea/Vomiting: Absent Respiratory: Satisfactory Pain: Controlled Complications: Absent Post Op Complications Complications None Follow Up Care/Instructions Patient Instructions None needed. Anesthesia/Patient Condition Patient Condition Patient is doing well, no complaints, stable vital signs, no apparent adverse anesthesia problems. No complications reported per nursing. BHAVESH ACHARYA CRNA Aug 04, 2018 14:14
== END 2018-08-04 12:05 | disposition home or self-care (01) | DRG 355 ==
LOC: 4TH 10:26 → SDC 10:26 → EDSTATUS 13:00 → 4TH 17:14 → SDC 17:14 → 4TH 08-04 12:05
PROVIDERS: ADMIT Surgery; ATTEND Surgery
PROC: 0WUF0JZ Supplement Abdominal Wall with Synthetic Substitute, Open Approach (ICD-10-PCS; principal; 2018-08-03 14:03)
PROC: 0WPF0JZ Removal of Synthetic Substitute from Abdominal Wall, Open Approach (ICD-10-PCS; principal; 2018-08-03 14:03)
DX: K43.2 Incisional hernia without obstruction or gangrene (principal); F20.9 Schizophrenia, unspecified; J44.9 Chronic obstructive pulmonary disease, unspecified; G47.33 Obstructive sleep apnea (adult) (pediatric); F17.210 Nicotine dependence, cigarettes, uncomplicated; Z79.899 Other long term (current) drug therapy
CPT/HCPCS: 36415; 85025; 87081; 88302; 94664

== ENCOUNTER 2018-08-12 10:15 | Emergency (ER) | payer MEDICARE ==
[~2018-08-12] VITALS: Ht 177.8 cm; Wt 99.8 kg
[~2018-08-12 10:15] MED LIST changes: +HYDR-34 PO
[2018-08-12] MEDS ORDERED: HYDROcodone/APAP 5 MG/325 MG (LORTAB) TAB PO ONE (11:00)
[2018-08-12] MEDS ORDERED: HYDR-4226 PO (11:02)
--- NOTE | 2018-08-12 11:02 | ED Abdominal Pain ---
General Stated Complaint: ABD PAIN POST SURGERY Source of Information: Patient Exam Limitations: No Limitations History of Present Illness Date Seen by Provider: Aug 12, 2018 Time Seen by Provider: 10:58 Initial Comments To ER with reports of incisional pain. Patient had repair of ventral hernia done on 08/14/[address] Daniel. Old mesh was removed and new mesh was replaced. Patient states that he ran out of his pain medication 3 days ago and has been having increased pain since then. He denies fevers or chills. No nausea or vomiting. No shortness of breath. He is having normal bowel movements. His only complaint is of pain as a result of running out of his pain medication pills Timing/Duration: 2-3 Days Severity/Quality: Moderate Location: Periumbilical Radiation: No Radiation Activities at Onset: None Associated Symptoms: No Fever/Chills, No Heartburn, No Nausea/Vomiting Allergies and Home Medications Allergies Coded Allergies: Phenothiazines (Verified Allergy, Unknown, 12/20/17) Home Medications Amitriptyline HCl 25 Mg Tablet, 25 MG PO DAILY, (Reported) Hydrocodone Bit/Acetaminophen 1 Ea Tablet, 1 EACH PO Q4H PRN for PAIN-MODERATE Prescribed by: AKIN DANIEL on 08/03/18 1554 Rubi's Wort 300 Mg Tablet, 300 MG PO DAILY, (Reported) Patient Home Medication List Home Medication List Reviewed: Yes Review of Systems Review of Systems Constitutional: see HPI; No chills, No fever EENTM: No Symptoms Reported Respiratory: No Symptoms Reported Cardiovascular: No Symptoms Reported Gastrointestinal: See HPI, Abdominal Pain; Denies Constipated, Denies Diarrhea , Denies Nausea Genitourinary: No Symptoms Reported Musculoskeletal: no symptoms reported Skin: no symptoms reported Psychiatric/Neurological: No Symptoms Reported Hematologic/Lymphatic: No Symptoms Reported Past Nqmpmif-Vysoqo-Dcceoq Hx Patient Social History Type Used: Cigarettes 2nd Hand Smoke Exposure: Yes Recent Hopitalizations: No Immunizations Up To Date Tetanus Booster (TDap): Unknown PED Vaccines UTD: No Seasonal Allergies Seasonal Allergies: No Past Medical History Surgeries: Yes (EGD/COLONOSCOPY; COLON RESECTION FOR BENIGN TUMOR; PILONIDAL CYST X 2) Abdominal, Appendectomy, Bowel Surgery Respiratory: Yes Sleep Apnea, COPD Currently Using CPAP: No Cardiac: Yes Chronic Edema/Swelling Neurological: No Reproductive Disorders: No Sexually Transmitted Disease: No HIV/AIDS: No Genitourinary: No Gastrointestinal: Yes (COLON RESECTION FOR BENIGN TUMOR) Irritable Bowel Musculoskeletal: Yes Chronic Back Pain Endocrine: No HEENT: No Loss of Vision: Denies Hearing Impairment: Denies Cancer: No Psychosocial: Yes (NON-COMPLIANT WITH MEDICATIONS) Sleep Difficulties, Anxiety, Schizophrenia Integumentary: No Blood Disorders: No Adverse Reaction/Blood Tranf: No (N/A) Family Medical History No Pertinent Family Hx Physical Exam Vital Signs Capillary Refill : Height/Weight/BMI Height: 5'7.00" Weight: 215lbs. 0.0oz. 97.355775br; 33.7 BMI Method:Estimated General Appearance: WD/WN, no apparent distress HEENT: PERRL/EOMI, normal ENT inspection Respiratory: no respiratory distress, no accessory muscle use Gastrointestinal: normal bowel sounds, soft, other (periumbilical incision is clean dry and intact. There is some mild surrounding ecchymosis but no erythema and no drainage.) Extremities: normal range of motion, non-tender Neurologic/Psychiatric: alert, normal mood/affect, oriented x 3 Skin: normal color, warm/dry Progress/Results/Core Measures Results/Orders My Orders Orders - RANDELL BLAKE APRN Hydrocodone/Apap 5/325 Tablet (Lortab 5 (08/12/18 11:00) Cbc With Automated Diff (08/12/18 10:57) Comprehensive Metabolic Panel (08/12/18 10:57) Departure Impression Primary Impression: Postoperative pain Disposition: HOME, SELF-CARE Condition: Stable Departure-Patient Inst. Decision time for Depature: 11:01 Referrals: ROLANDO SIFUENTES MD (PCP/Family) Primary Care Physician Patient Instructions: Postoperative Pain (DC) Add. Discharge Instructions: 1. Follow-up with Dr. Daniel. Call Tuesday to make an appointment to be seen 2. Return to ER for any vomiting fevers chills or constipation. Scripts Hydrocodone/Acetaminophen ([place] 5-325 Tablet) 1 Each Tablet 1 EACH PO Q6H PRN for PAIN-MODERATE MDD 10, #14 TAB Prov: RANDELL BLAKE APRN 08/12/18 Copy Copies To 1: AKIN DANIEL MD, PETER J APRN Aug 12, 2018 11:02
[2018-08-12 11:28] LABS: BASOPHILS % (AUTO) 0 % (0-10); EOSINOPHILS % (AUTO) 0 % (0-10); HEMATOCRIT 42 % (40-54); HEMOGLOBIN 14.7 G/DL (13.3-17.7); LYMPHOCYTES # (AUTO) 1.2 X 10^3 (1.0-4.0); LYMPHOCYTES % (AUTO) 11 % (12-44); MEAN CORPUSCULAR HEMOGLOBIN 33 PG (25-34); MEAN CORPUSCULAR HGB CONC 35 G/DL (32-36); MEAN CORPUSCULAR VOLUME 93 FL (80-99); MEAN PLATELET VOLUME 8.7 FL (7.4-10.4); MONOCYTES # (AUTO) 0.9 X 10^3 (0.0-1.0); MONOCYTES % (AUTO) 9 % (0-12); NEUTROPHILS # (AUTO) 8.4 X 10^3 (1.8-7.8); NEUTROPHILS % (AUTO) 80 % (42-75); PLATELET COUNT 253 10^3/uL (130-400); RED BLOOD COUNT 4.51 10^6/uL (4.35-5.85); RED CELL DISTRIBUTION WIDTH 12.6 % (10.0-14.5); WHITE BLOOD COUNT 10.6 10^3/uL (4.3-11.0)
[2018-08-12 11:58] LABS: ALANINE AMINOTRANSFERASE 13 U/L (0-55); ALBUMIN 3.6 GM/DL (3.2-4.5); ALKALINE PHOSPHATASE 86 U/L (40-136); BILIRUBIN,TOTAL 0.8 MG/DL (0.1-1.0); BUN/CREATININE RATIO 10; CALCIUM 9.3 MG/DL (8.5-10.1); CARBON DIOXIDE 24 MMOL/L (21-32); CHLORIDE 103 MMOL/L (98-107); CREATININE SERUM 0.72 MG/DL (0.60-1.30); GFR ESTIMATED > 60; GLUCOSE 142 MG/DL (70-105); POTASSIUM 4.1 MMOL/L (3.6-5.0); SODIUM 138 MMOL/L (135-145); TOTAL PROTEIN 6.2 GM/DL (6.4-8.2)
[2018-08-12 12:25] VITALS: BP 164/90
== END 2018-08-12 12:32 | disposition home or self-care (01) ==
LOC: EDUNIT# 10:15 → ER 10:17
DX: G89.18 Other acute postprocedural pain (principal); R10.33 Periumbilical pain; J44.9 Chronic obstructive pulmonary disease, unspecified; G47.30 Sleep apnea, unspecified; F41.9 Anxiety disorder, unspecified; F20.9 Schizophrenia, unspecified; Z91.14 Patient's other noncompliance with medication regimen; Z98.890 Other specified postprocedural states; Z88.8 Allergy status to other drugs, medicaments and biological substances; Z87.19 Personal history of other diseases of the digestive system; Z77.22 Contact with and (suspected) exposure to environmental tobacco smoke (acute) (chronic); Z90.49 Acquired absence of other specified parts of digestive tract
CPT/HCPCS: 36415; 80053; 85025; 99283

== ENCOUNTER 2018-10-07 17:29 | Emergency (ER) | payer MEDICARE ==
[~2018-10-07] VITALS: Ht 170.2 cm; Wt 101.2 kg
[~2018-10-07 17:29] MED LIST changes: +HYDR-4226 PO
[2018-10-07] MEDS ORDERED: OXYC1TAB87 PO (18:43)
--- NOTE | 2018-10-07 18:43 | ED General ---
General Chief Complaint: General Problems/Pain Stated Complaint: RAN OUT OF MEDICATION Nursing Triage Note: PT AMBULATES TO [facility] STATES OUT OF PAIN MEDS, CALLED TUESDAY AND NO ONE IN OFFICE. PT STATES HAS HERNIA AND SUPPOSE TO GET REPAIRED IN OCTOBER Nursing Sepsis Screen: No Definite Risk Source of Information: Patient Exam Limitations: No Limitations History of Present Illness Date Seen by Provider: Oct 07, 2018 Time Seen by Provider: 18:40 Initial Comments To ER per private vehicle with reports of being out of his Percocet. He has a large ventral hernia and is scheduled to have this repaired. He is not having any vomiting, he is passing gas and having bowel movements. He reports chronic unchanged pain in the abdomen from the hernia defect. He also like to get some diazepam. Timing/Duration: 1-2 Days Severity: Moderate Allergies and Home Medications Allergies Coded Allergies: Phenothiazines (Verified Allergy, Unknown, 12/20/17) Home Medications Amitriptyline HCl 25 Mg Tablet, 25 MG PO DAILY, (Reported) Hydrocodone Bit/Acetaminophen 1 Ea Tablet, 1 EACH PO Q4H PRN for PAIN-MODERATE Prescribed by: AKIN DANIEL on 08/03/18 1554 Hydrocodone/Acetaminophen 1 Each Tablet, 1 EACH PO Q6H PRN for PAIN-MODERATE Prescribed by: RANDELL BLAKE on 08/12/18 1102 Rubi's Wort 300 Mg Tablet, 300 MG PO DAILY, (Reported) Patient Home Medication List Home Medication List Reviewed: Yes Review of Systems Review of Systems Constitutional: see HPI EENTM: see HPI Respiratory: no symptoms reported Cardiovascular: no symptoms reported Gastrointestinal: abdominal pain Genitourinary: no symptoms reported Musculoskeletal: no symptoms reported Skin: no symptoms reported Psychiatric/Neurological: No Symptoms Reported Hematologic/Lymphatic: No Symptoms Reported Past Ydqeygp-Eaesvg-Tihzzi Hx Patient Social History Alcohol Use: Denies Use Recreational Drug Use: No Smoking Status: Current Everyday Smoker Type Used: Cigarettes 2nd Hand Smoke Exposure: Yes Recent Foreign Travel: No Contact w/Someone Who Travel: No Recent Infectious Disease Expo: No Recent Hopitalizations: No Immunizations Up To Date Tetanus Booster (TDap): Unknown PED Vaccines UTD: No Seasonal Allergies Seasonal Allergies: No Past Medical History Surgeries: Yes ( COLON RESECTION FOR BENIGN TUMOR; PILONIDAL CYST X 2) Abdominal, Appendectomy, Bowel Surgery Respiratory: Yes Sleep Apnea, COPD Currently Using CPAP: No Cardiac: Yes Chronic Edema/Swelling Neurological: No Reproductive Disorders: No Sexually Transmitted Disease: No HIV/AIDS: No Genitourinary: No Gastrointestinal: Yes (COLON RESECTION FOR BENIGN TUMOR) Irritable Bowel Musculoskeletal: Yes Chronic Back Pain Endocrine: No HEENT: No Loss of Vision: Denies Hearing Impairment: Denies Cancer: No Psychosocial: Yes (NON-COMPLIANT WITH MEDICATIONS) Sleep Difficulties, Anxiety, Schizophrenia Integumentary: No Blood Disorders: No Adverse Reaction/Blood Tranf: No (N/A) Family Medical History No Pertinent Family Hx Physical Exam Vital Signs Vital Signs - First Documented 10/07/18 18:06 Temp 97.2 Pulse 107 Resp 18 B/P (MAP) 143/93 (110) Pulse Ox 96 Capillary Refill : Less Than 3 Seconds Height, Weight, BMI Height: 5'7.00" Weight: 223lbs. 0.0oz. 101.588058iq; 33.7 BMI Method:Actual General Appearance: No Apparent Distress, WD/WN Eyes: Bilateral Eye Normal Inspection, Bilateral Eye PERRL, Bilateral Eye EOMI HEENT: PERRL/EOMI Respiratory: No Accessory Muscle Use, No Respiratory Distress Gastrointestinal: Non Tender, Soft, Other (there is a large ventral hernia present. Bowel sounds are positive.) Extremity: Normal Capillary Refill, Normal Inspection Neurologic/Psychiatric: Alert, Oriented x3 Progress/Results/Core Measures Suspected Sepsis Recent Fever Within 48 Hours: No Infection Criteria Present: None New/Unexplained Altered Menta: No Sepsis Screen: No Definite Risk SIRS Temperature:97.2 Pulse: 107 Respiratory Rate: 18 Blood Pressure 143 /93 Mean: 110 Results/Orders Vital Signs/I&O 10/07/18 18:06 Temp 97.2 Pulse 107 Resp 18 B/P (MAP) 143/93 (110) Pulse Ox 96 Capillary Refill : Less Than 3 Seconds Blood Pressure Mean: 110 Departure Impression Primary Impression: VENTRAL ABDOMINAL INCISIONAL HERNIA Disposition: 01 HOME, SELF-CARE Condition: Stable Departure-Patient Inst. Decision time for Depature: 18:42 Referrals: ROLANDO SIFUENTES MD (PCP/Family) Primary Care Physician Patient Instructions: CHRONIC PAIN Add. Discharge Instructions: 1. You'll need to follow-up with your primary care provider to discuss a prescription for diazepam. All discharge instructions reviewed with patient and/ or family. Voiced understanding. Scripts Oxycodone HCl/Acetaminophen (Percocet 5-325 mg Tablet) 1 Each Tablet 1 TAB PO Q6H for PAIN-MODERATE MDD 6, #20 TAB Prov: RANDELL BLAKE APRN 10/07/18 RANDELL BLAKE APRN Oct 07, 2018 18:43
[2018-10-07 18:48] VITALS: BP 143/93
== END 2018-10-07 18:53 | disposition home or self-care (01) ==
LOC: EDUNIT# 17:29 → ER 17:30
DX: K43.2 Incisional hernia without obstruction or gangrene (principal); G47.30 Sleep apnea, unspecified; J44.9 Chronic obstructive pulmonary disease, unspecified; F41.9 Anxiety disorder, unspecified; F20.9 Schizophrenia, unspecified; K58.9 Irritable bowel syndrome, unspecified; F17.210 Nicotine dependence, cigarettes, uncomplicated; Z88.8 Allergy status to other drugs, medicaments and biological substances; Z91.14 Patient's other noncompliance with medication regimen; Z90.89 Acquired absence of other organs; Z98.890 Other specified postprocedural states; Z90.49 Acquired absence of other specified parts of digestive tract
CPT/HCPCS: 99281

== ENCOUNTER 2018-11-13 09:01 | Outpatient (CLI) | payer MEDICARE ==
[~2018-11-13] VITALS: Ht 170.2 cm; Wt 101.2 kg
[~2018-11-13 09:01] MED LIST changes: +OXYC1TAB87 PO
[2018-11-13] MEDS ORDERED: OXYC-464 PO (14:25)
[2018-11-13] MEDS ORDERED: DIAZ5TAB3 PO (14:25)
== END 2018-11-13 14:36 | disposition home or self-care (01) ==
LOC: PREOP 09:01
PROVIDERS: ATTEND Surgery
DX: Z01.818 Encounter for other preprocedural examination (principal)

== ENCOUNTER 2018-11-16 07:59 | Inpatient (IN) | payer MEDICARE ==
[~2018-11-16] VITALS: Ht 170.2 cm; Wt 101.2 kg
[~2018-11-16 07:59] MED LIST changes: +DIAZ5TAB3 PO; +OXYC-464 PO
[2018-11-16 08:15] VITALS: BP 123/80
[2018-11-16] MEDS ORDERED: ceFAZolin 2 GM IV Premixed 50 ML IV ONE (08:15)
--- NOTE | 2018-11-16 08:18 | Progress Note-Pre Operative ---
Pre-Operative Progress Note H&P Reviewed The H&P was reviewed, patient examined and no changes noted. Date Seen by Provider: Nov 16, 2018 Time Seen by Provider: 08:15 Date H&P Reviewed: Nov 16, 2018 Time H&P Reviewed: 08:10 Pre-Operative Diagnosis: Symptomatic Incisional hernia OPAL MADERA APRN Nov 16, 2018 08:18
[2018-11-16] MEDS ORDERED: HYDR-3816 PO (08:22)
--- NOTE | 2018-11-16 08:24 | Discharge Inst-Surgical ---
D/C Lap Instructions-KIDO New, Converted, or Re-Newed RX: RX on Chart Follow Up Appt in 2 weeks Activity as tolerated No driving for 24 hours No driving while on pain medications Incentive Spirometry use every 2 hours while awake Regular Diet Symptoms to Report: Fever over 101 degree F, Nausea/Vomiting Infection Signs and Symptoms to report: Increased redness, Foul odor of wound, Increased drainage Bathing instructions: May shower Operative Area Clean/Dry; Keep incision clean/dry If any problems/questions: Contact your physician or go to Emergency Room OPAL MADERA APRN Nov 16, 2018 08:24
[2018-11-16] MEDS: LACTATED RINGERS 1,000 ML IV PRN ×2 (08:25→09:12)
[2018-11-16] MEDS ORDERED: morphine INJ 10 MG/ML 1ML (SYR OR VIAL) IVP PRN (08:30)
[2018-11-16] MEDS ORDERED: CATHETER FLUSH 10 ML SYR IV PRN (08:30)
[2018-11-16] MEDS ORDERED: ACETAMINOPHEN 325 MG TABLET PO PRN (08:30)
[2018-11-16] MEDS ORDERED: ONDANSETRON 4 MG/2 ML (SDV) Z0FRAN IVP PRN ×2 (08:30→11:30)
[2018-11-16 08:41] LABS: BASOPHILS % (AUTO) 0 % (0-10); EOSINOPHILS # (AUTO) 0.1 10^3/uL (0.0-0.3); EOSINOPHILS % (AUTO) 2 % (0-10); HEMATOCRIT 45 % (40-54); HEMOGLOBIN 15.3 G/DL (13.3-17.7); LYMPHOCYTES # (AUTO) 2.4 X 10^3 (1.0-4.0); LYMPHOCYTES % (AUTO) 36 % (12-44); MEAN CORPUSCULAR HEMOGLOBIN 31 PG (25-34); MEAN CORPUSCULAR HGB CONC 34 G/DL (32-36); MEAN CORPUSCULAR VOLUME 93 FL (80-99); MEAN PLATELET VOLUME 8.7 FL (7.4-10.4); MONOCYTES # (AUTO) 0.7 X 10^3 (0.0-1.0); MONOCYTES % (AUTO) 10 % (0-12); NEUTROPHILS # (AUTO) 3.3 X 10^3 (1.8-7.8); NEUTROPHILS % (AUTO) 51 % (42-75); PLATELET COUNT 187 10^3/uL (130-400); RED CELL DISTRIBUTION WIDTH 13.1 % (10.0-14.5); WHITE BLOOD COUNT 6.5 10^3/uL (4.3-11.0)
[2018-11-16] MEDS ORDERED: BUP/EPI 0.5% 1:200,000 (SENSORCAINE) 30 ML VIAL ONE (08:44)
[2018-11-16] MEDS ORDERED: NEOSTIGMINE 1 MG/ML 5 ML SYRINGE ONE (08:52)
[2018-11-16] MEDS ORDERED: GLYCOPYRROLATE 0.2 MG/ML (ROBINUL) 2 ML VIAL ONE (08:52)
[2018-11-16] MEDS ORDERED: ROCURONIUM 10 MG/ML 5 ML SYRINGE IV ONE ×2 (08:52→10:06)
[2018-11-16] MEDS ORDERED: SEVOFLURANE (ULTANE) 15 ML INHAL SOLN ONE ×2 (08:52→11:18)
[2018-11-16] MEDS ORDERED: ONDANSETRON 4 MG/2 ML (SDV) Z0FRAN ONE (08:52)
[2018-11-16] MEDS ORDERED: proPOfol 200 MG/20 ML (DIPRIVAN) VIAL IV ONE (08:52)
[2018-11-16] MEDS ORDERED: DEXAMETHASONE 10 MG/ML (DECADRON) 1 ML VIAL ONE (08:52)
[2018-11-16] MEDS ORDERED: LIDOCAINE PF 2% 5 ML (XYLOCAINE) VIAL ONE (08:52)
[2018-11-16] MEDS ORDERED: fentaNYL INJECTION 250 MCG/5 ML AMP ONE (08:53)
[2018-11-16] MEDS ORDERED: MIDAZOLAM 2 MG/2 ML (VERSED) VIAL ONE (08:53)
[2018-11-16] MEDS ORDERED: PHENYLEPHRINE 100 MCG/ML 10 ML (ANESTHESIA) SYR ONE (09:55)
[2018-11-16] MEDS ORDERED: morphine INJ 10 MG/ML 1ML (SYR OR VIAL) IVP ONE (11:30)
[2018-11-16] MEDS ORDERED: HYDROmorphone 2 MG/ML VIAL (DILAUDID) IV ONE (11:30)
--- NOTE | 2018-11-16 12:20 | NUR ---
TRANSFERRED FROM [facility] PER BED. ALERT AND COOPERATIVE [employer] WITH ISLAND DRESSING IN PLACE. SHADOWING ON DRESSING NOTED. ABD BINDER IN PLACE. DEEP BREATHING ENCOURAGED. COLOR PINK. SKIN W/D. RESP. REGULAR. RATED PAIN 02/05. IV SITE PER LEFT F/A IN PLACE.
[2018-11-16] MEDS: oxyCODONE/APAP 5/325MG (PERCOCET 5) TABLET PO PRN ×3 (12:54→23:04)
--- NOTE | 2018-11-16 14:15 | Anesthesia-General Post-Op ---
General Patient Condition Mental Status/LOC: Same as Preop Cardiovascular: Satisfactory Nausea/Vomiting: Absent Respiratory: Satisfactory Pain: Controlled Complications: Absent Post Op Complications Complications None Follow Up Care/Instructions Patient Instructions None needed. Anesthesia/Patient Condition Patient Condition Patient is doing well, no complaints, stable vital signs, no apparent adverse anesthesia problems. No complications reported per nursing. BHAVESH ACHARYA CRNA Nov 16, 2018 14:15
--- NOTE | 2018-11-16 15:34 | OPERATIVE REPORT ---
DATE OF SERVICE: 11/16/2018 ATTENDING PRIMARY CARE PHYSICIAN: Dr. Cook. PREOPERATIVE DIAGNOSIS: Large recurrent ventral abdominal incisional hernia, which is reducible. POSTOPERATIVE DIAGNOSIS: Large recurrent ventral abdominal incisional hernia, which is reducible with previous mesh within the hernia sac with the dimensions of the hernia approximately 12 x 12 cm in size. PROCEDURE: Open repair of recurrent ventral abdominal incisional hernia with mesh as well as explantation of previous mesh. SURGEON: Trell Dc MD. CLEANING TEAM MEMBER: Everett Samson APRN. ANESTHESIA: General endotracheal. ESTIMATED BLOOD LOSS: 100 mL. FINDINGS: Large recurrent ventral abdominal incisional hernia with the previous mesh as well as omentum and small bowel within the hernia sac. DISPOSITION: The patient tolerated the procedure well. INDICATIONS: The patient is a 63-year-old male known to us. We had seen him in the fall of 2017 for an incisional hernia, which was symptomatic. This gentleman does have a history of schizophrenia and does require some help and guidance for normal functioning; however, does answer the majority of questions appropriately. He was seen in the office and did have a symptomatic incisional hernia from a previous midline incision for an open right hemicolectomy for benign lesion. This was approximately 20 years ago. He did have a significant size incisional hernia, which was reducible; however, tender to palpation. Eventually, this surgery was scheduled; however, he did the patient appointments. Eventually, he did proceed with surgery on 07/04/2018. He did well after the surgery; however, due to his other medical needs, he was admitted overnight and discharged home the following day. We had seen him in the office for recurrent abdominal pain as well as a bulge. In the office, he was found to have a recurrent ventral abdominal incisional hernia, which was more off to the right from the previous hernia site. This was significant in size. The hernia was reducible; however, tender to palpation. He is otherwise eating well and having normal bowel movements. DESCRIPTION OF PROCEDURE: The patient was brought to the operating room and laid supine on the table. After adequate IV pain and sedative medications and general endotracheal intubation, the abdomen was prepped and draped in a standard surgical fashion. A 0.5% Marcaine with epinephrine was used to anesthetize the midline around the umbilicus and a skin incision was made along the previous incision line using a 15 blade. Subcutaneous tissue was then dissected using electrocautery. The hernia sac was identified and completely dissected out using blunt dissection as well as electrocautery. Good hemostasis was observed and the hernia sac was opened using Metzenbaum scissors. There were significant adhesions to the hernia sac, which included omentum and small bowel, which was completely dissected out using electrocautery as well as Metzenbaum scissors. There was a previous mesh within the hernia sac, which was also excised using blunt dissection, cautery as well as Metzenbaum scissors. Good hemostasis was observed. We then decided on the underlay mesh procedure with using a combination of absorbable tacks as well as sutures. There were significant adhesions to the peritoneal lining, which were then taken down using electrocautery as well as blunt dissection. Good hemostasis was observed. The fascial opening was approximately 12 x 12 cm. A 24 x 18 cm coated mesh was then placed into the defect. We then proceeded with circumferential placement of absorbable tacks concentrically around the mesh on the outer aspect. We then proceeded to place transfascial sutures to the mesh in a horizontal mattress fashion using 0 Prolene sutures. We then proceeded with placement of 0 Prolene transfascial sutures concentrically around the mesh using 0 Prolene sutures. Good hemostasis was observed. The subcutaneous tissue was then reapproximated using 3-0 Vicryl interrupted sutures. Skin was closed using skin piedad. The wound was then cleaned and covered with a pressure dressing followed by abdominal binder. The patient tolerated the procedure well. We will admit him for observation and proceed with adequate pain control with IV and oral pain medication and start a clear liquid diet and advance as tolerated. We will also instruct him to continue to wear the abdominal binder for at least the next 6 to 8 weeks. Job ID: [id number] DocumentID: [id number] Dictated Date: 11/16/2018 11:36:32 Staff [employer] Officer Date: 11/16/2018 15:33:35 Dictated By: MD RE SHULTZ
[2018-11-16 16:25] VITALS: BP 126/68
--- NOTE | 2018-11-16 17:00 | NUR ---
UP TO BATHROOM. VOIDED WITHOUT DIFFICULTY.
[2018-11-16 20:46] VITALS: BP 146/72
[2018-11-17] VITALS: BP 151/82
[2018-11-17 01:01] VITALS: BP 151/82
[2018-11-17] MEDS: oxyCODONE/APAP 5/325MG (PERCOCET 5) TABLET PO PRN ×2 (03:47→13:19)
[2018-11-17 04:15] VITALS: BP 140/74
[2018-11-17 08:00] VITALS: BP 132/68
[2018-11-17 12:00] VITALS: BP 150/76
--- NOTE | 2018-11-17 12:40 | NUR ---
dismissed per taxi service
--- NOTE | 2018-11-17 13:20 | NUR ---
ARAM CHEN demonstrates understanding of discharge instructions and accurately returns instructions upon questioning. Copy of Post-Discharge Instructions and Medication Discharge Instructions given to . ARAM CHEN is able to manage continuing needs after discharge. Patients belongings returned to patient. Skin dry and intact; no breakdown noted. Patient discharged from 427-1 on at . ARAM CHEN left floor via wheelchair, accompanied by staff.
== END 2018-11-17 13:20 | disposition home or self-care (01) | DRG 355 ==
LOC: SDC 07:59 → 4TH 12:20 → SDC 11-17 11:30 → 4TH 11-17 11:30 → UNDOADMIN 11-17 11:40 → 4TH 11-17 11:40 → UNDODISIN 11-17 13:20
PROVIDERS: ADMIT Surgery; ATTEND Surgery
PROC: 0WPF0JZ Removal of Synthetic Substitute from Abdominal Wall, Open Approach (ICD-10-PCS; 2018-11-16)
PROC: 0WUF0JZ Supplement Abdominal Wall with Synthetic Substitute, Open Approach (ICD-10-PCS; principal; 2018-11-16 08:58)
DX: K43.2 Incisional hernia without obstruction or gangrene (principal); F20.9 Schizophrenia, unspecified; F32.9 Major depressive disorder, single episode, unspecified; F41.9 Anxiety disorder, unspecified; G47.33 Obstructive sleep apnea (adult) (pediatric); J44.9 Chronic obstructive pulmonary disease, unspecified; F17.210 Nicotine dependence, cigarettes, uncomplicated; K58.9 Irritable bowel syndrome, unspecified; R60.9 Edema, unspecified; Z91.19 Patient's noncompliance with other medical treatment and regimen
CPT/HCPCS: 36415; 85025; 87081; 88302; 94664

== ENCOUNTER 2019-02-08 15:20 | Observation (INO) | payer MEDICARE ==
[~2019-02-08] VITALS: Ht 182.9 cm; Wt 104.0 kg
[~2019-02-08 15:20] MED LIST changes: +HYDR-3816 PO
[2019-02-08] MEDS ORDERED: NS IV 1000 ML 1,000 ML ONE ×2 (15:29→21:35)
--- NOTE | 2019-02-08 15:30 | NUR ---
This nurse asked pt for urine sample. Pt became irate and started yelling at nurse. Pt lunged at edge of bed toward nurse. When nurse asked pt to settle down and stop yelling, pt layed back down in bed.
[2019-02-08] MEDS ORDERED: NS IV 1000 ML 1,000 ML IV ONE (15:59)
[2019-02-08 16:05] LABS: BASOPHILS % (AUTO) 1 % (0-10); EOSINOPHILS # (AUTO) 0.1 10^3/uL (0.0-0.3); EOSINOPHILS % (AUTO) 1 % (0-10); HEMATOCRIT 50 % (40-54); HEMOGLOBIN 17.3 G/DL (13.3-17.7); LYMPHOCYTES # (AUTO) 2.1 X 10^3 (1.0-4.0); LYMPHOCYTES % (AUTO) 33 % (12-44); MEAN CORPUSCULAR HEMOGLOBIN 32 PG (25-34); MEAN CORPUSCULAR HGB CONC 35 G/DL (32-36); MEAN CORPUSCULAR VOLUME 91 FL (80-99); MEAN PLATELET VOLUME 8.7 FL (7.4-10.4); MONOCYTES # (AUTO) 0.6 X 10^3 (0.0-1.0); MONOCYTES % (AUTO) 10 % (0-12); NEUTROPHILS # (AUTO) 3.6 X 10^3 (1.8-7.8); NEUTROPHILS % (AUTO) 56 % (42-75); PLATELET COUNT 204 10^3/uL (130-400); WHITE BLOOD COUNT 6.4 10^3/uL (4.3-11.0)
--- NOTE | 2019-02-08 16:09 | NUR ---
Nurse requested urine sample from nurse. Pt declined.
[2019-02-08 16:20] LABS: ALANINE AMINOTRANSFERASE 21 U/L (0-55); ALBUMIN 4.3 GM/DL (3.2-4.5); ALKALINE PHOSPHATASE 119 U/L (40-136); BILIRUBIN,TOTAL 0.6 MG/DL (0.1-1.0); BUN/CREATININE RATIO 22; CALCIUM 9.8 MG/DL (8.5-10.1); CARBON DIOXIDE 27 MMOL/L (21-32); CHLORIDE 107 MMOL/L (98-107); CREATININE SERUM 1.05 MG/DL (0.60-1.30); GFR ESTIMATED > 60; GLUCOSE 196 MG/DL (70-105); POTASSIUM 3.7 MMOL/L (3.6-5.0); SALICYLATE < 5.0 MG/DL (5.0-20.0); SODIUM 143 MMOL/L (135-145)
[2019-02-08 16:21] LABS: ACETAMINOPHEN < 10 UG/ML (10-30)
--- NOTE | 2019-02-08 16:51 | ED General ---
General Chief Complaint: Altered Mental Status Stated Complaint: AMS Nursing Triage Note: Pt to ED via EMS. EMS reporst picking pt up at [facility]. EMS report being called by commercial construction estimator who reports pt had been walking around complex for approximately 30 minutes and was trying to open door knobs. Pt reportedly lives approximately one block from the area. EMS reports pt told EMS there is a beast in the pt's stomach. Upon arrival pt disheveled, slurring words and incoherent. Pt unable to answer questions for assessment. Pt barefoot. Nursing Sepsis Screen: No Definite Risk Source of Information: Patient, EMS Exam Limitations: Physical Impairments History of Present Illness Date Seen by Provider: Feb 08, 2019 Time Seen by Provider: 15:20 Initial Comments Here with report by EMS of altered mental status. Apparently he was walking around outside and was trying to open the doors and not acting right. Ultimately a bystander called EMS who then brought him here. Patient does not report anything significant although seems confused. He did say something about taking Benadryl although he is not stating that now. Unsure of last known well time or his typical mental status. Unable to determine any significant past medical history from the patient. He does follow commands and does not seem to have any focal weakness. This seems to be more centered about confusion. He is tachycardic in the rate of 110s. EMS was unable to provide other information and patient is unable to provide much information for himself. History per records miroslava suazo. I did speak with the patient's ex- who reports that he has been off his schizophrenia meds for the last year. He did take him for a while after his last admission at [facility]. He has been using Benadryl daily to help with his symptoms. Patient admits to this as well. He does not reports suicidal ideation. Timing/Duration: Other (unknown) Severity: Moderate Associated Systoms: Other (unknown) Allergies and Home Medications Allergies Coded Allergies: Phenothiazines (Verified Allergy, Unknown, 12/20/17) Home Medications Diazepam 5 Mg Tablet, 5 MG PO BID PRN for ANXIETY, (Reported) Hydrocodone/Acetaminophen 1 Each Tablet, 1-2 TAB PO Q4H Prescribed by: OPAL MADERA on 11/16/18 0822 Oxycodone HCl/Acetaminophen 1 Each Tablet, 1-2 EACH PO Q4H PRN for PAIN- MODERATE, (Reported) Rubi's Wort 300 Mg Tablet, 300 MG PO DAILY, (Reported) Patient Home Medication List Home Medication List Reviewed: Yes Review of Systems Review of Systems Constitutional: see HPI Unable to complete review of systems due to altered mental status All Other Systems Reviewed Negative Unless Noted: No Past Yuxznso-Woexyx-Wvsley Hx Past Med/Social Hx: Reviewed Nursing Past Med/Soc Hx Patient Social History Alcohol Use: Denies Use Recreational Drug Use: No Type Used: Cigarettes 2nd Hand Smoke Exposure: Yes Recent Foreign Travel: No Contact w/Someone Who Travel: No Recent Infectious Disease Expo: No Recent Hopitalizations: No Immunizations Up To Date Tetanus Booster (TDap): Unknown PED Vaccines UTD: No Date of Influenza Vaccine: May 29, 2018 Seasonal Allergies Seasonal Allergies: No Past Medical History Surgeries: Yes ( COLON RESECTION FOR BENIGN TUMOR; PILONIDAL CYST X 2, hernia ) Abdominal, Appendectomy, Bowel Surgery Respiratory: Yes Sleep Apnea, COPD Currently Using CPAP: No Cardiac: Yes Chronic Edema/Swelling Neurological: No Reproductive Disorders: No Sexually Transmitted Disease: No HIV/AIDS: No Genitourinary: No Gastrointestinal: Yes (COLON RESECTION FOR BENIGN TUMOR) Irritable Bowel Musculoskeletal: Yes Chronic Back Pain Endocrine: No HEENT: No Loss of Vision: Denies Hearing Impairment: Denies Cancer: No Psychosocial: Yes (NON-COMPLIANT WITH MEDICATIONS) Sleep Difficulties, Anxiety, Schizophrenia Integumentary: No Blood Disorders: No Adverse Reaction/Blood Tranf: No (N/A) Family Medical History Reviewed Nursing Family Hx No Pertinent Family Hx Physical Exam Vital Signs Vital Signs - First Documented 02/08/19 15:20 Temp 98.4 Pulse 114 Resp 14 B/P (MAP) 126/95 (105) Pulse Ox 95 O2 Delivery Room Air Capillary Refill : Less Than 3 Seconds Height, Weight, BMI Height: 6'0" Weight: 275lbs. 0.0oz. 124.128247yv; 34.9 BMI Method:Estimated General Appearance: No Apparent Distress HEENT: PERRL/EOMI, Pharynx Normal, Other (moderate bilateral nasal congestion) Neck: Non Tender, Supple Respiratory: Lungs Clear, Normal Breath Sounds Cardiovascular: No Murmur, Tachycardia Gastrointestinal: Non Tender, Soft Back: Normal Inspection, No CVA Tenderness, No Vertebral Tenderness Extremity: Normal Range of Motion, Non Tender Neurologic/Psychiatric: Alert, Other (confused as to place and time but able to follow commands and Knows self.) Skin: Warm/Dry, Other (reddened appearing skin.) Progress/Results/Core Measures Suspected Sepsis Recent Fever Within 48 Hours: No Infection Criteria Present: None New/Unexplained Altered Menta: No Sepsis Screen: No Definite Risk SIRS Temperature:98.4 Pulse: 114 Respiratory Rate: 14 Laboratory Tests 02/08/19 15:25: White Blood Count 6.4 Blood Pressure 126 /95 Mean: 105 Laboratory Tests 02/08/19 15:25: Creatinine 1.05, Platelet Count 204, Total Bilirubin 0.6 Results/Orders Lab Results Laboratory Tests Test 02/08/19 15:25 Range/Units White Blood Count 6.4 4.3-11.0 10^3/uL Red Blood Count 5.48 4.35-5.85 10^6/uL Hemoglobin 17.3 13.3-17.7 G/DL Hematocrit 50 40-54 % Mean Corpuscular Volume 91 80-99 FL Mean Corpuscular Hemoglobin 32 25-34 PG Mean Corpuscular Hemoglobin Concent 35 32-36 G/DL Red Cell Distribution Width 14.0 10.0-14.5 % Platelet Count 204 130-400 10^3/uL Mean Platelet Volume 8.7 7.4-10.4 FL Neutrophils (%) (Auto) 56 42-75 % Lymphocytes (%) (Auto) 33 12-44 % Monocytes (%) (Auto) 10 0-12 % Eosinophils (%) (Auto) 1 0-10 % Basophils (%) (Auto) 1 0-10 % Neutrophils # (Auto) 3.6 1.8-7.8 X 10^3 Lymphocytes # (Auto) 2.1 1.0-4.0 X 10^3 Monocytes # (Auto) 0.6 0.0-1.0 X 10^3 Eosinophils # (Auto) 0.1 0.0-0.3 10^3/uL Basophils # (Auto) 0.0 0.0-0.1 10^3/uL Sodium Level 143 135-145 MMOL/L Potassium Level 3.7 3.6-5.0 MMOL/L Chloride Level 107 98-107 MMOL/L Carbon Dioxide Level 27 21-32 MMOL/L Anion Gap 9 5-14 MMOL/L Blood Urea Nitrogen 23 H 7-18 MG/DL Creatinine 1.05 0.60-1.30 MG/DL Estimat Glomerular Filtration Rate > 60 BUN/Creatinine Ratio 22 Glucose Level 196 H 70-105 MG/DL Calcium Level 9.8 8.5-10.1 MG/DL Corrected Calcium 9.6 8.5-10.1 MG/DL Total Bilirubin 0.6 0.1-1.0 MG/DL Aspartate Amino Transf (AST/SGOT) 23 5-34 U/L Alanine Aminotransferase (ALT/SGPT) 21 0-55 U/L Alkaline Phosphatase 119 40-136 U/L Troponin I 0.037 H <0.028 NG/ML Total Protein 7.0 6.4-8.2 GM/DL Albumin 4.3 3.2-4.5 GM/DL TSH [place] Testing 3.84 0.35-4.94 UIU/ML Salicylates Level < 5.0 L 5.0-20.0 MG/DL Acetaminophen Level < 10 L 10-30 UG/ML Serum Alcohol < 10 <10 MG/DL My Orders Orders - RAMU MENA MD Ns Iv 1000 Ml (Sodium Chloride 0.9%) (02/08/19 15:29) Ua Culture If Indicated (02/08/19 15:59) Cbc With Automated Diff (02/08/19 15:59) Comprehensive Metabolic Panel (02/08/19 15:59) Alcohol (02/08/19 15:59) Drug Screen Stat (Urine) (02/08/19 15:59) Acetaminophen (02/08/19 15:59) Salicylate (02/08/19 15:59) Ekg Tracing (02/08/19 15:59) Ed Iv/Invasive Line Start (02/08/19 15:59) Thyroid Analyzer (02/08/19 15:59) Monitor-Rhythm Ecg Trace Only (02/08/19 15:59) Bh Status Checks/Observation Q15M (02/08/19 15:59) Ed Iv/Invasive Line Start (02/08/19 15:59) Ns Iv 1000 Ml (Sodium Chloride 0.9%) (02/08/19 15:59) Ct Head Wo (02/08/19 15:59) Troponin I (02/08/19 16:11) Chest 1 View, Ap/Pa Only (02/08/19 17:27) Lactated Ringers (Lr 1000 Ml Iv Solution (02/08/19 17:27) Lorazepam Injection (Ativan Injection) (02/08/19 18:30) Medications Given in ED Current Medications Medications Dose Ordered Sig/Clare Route Start Time Stop Time Status Last Admin Dose Admin Lactated Ringer's 1,000 ml @ 0 mls/hr Q0M ONCE IV 02/08/19 17:27 02/08/19 17:28 DC 02/08/19 17:45 1,000 MLS/HR Lorazepam 1 mg ONCE ONCE IVP 02/08/19 18:30 02/08/19 18:31 DC 02/08/19 18:28 1 MG Sodium Chloride 1,000 ml @ 0 mls/hr Q0M ONCE IV 02/08/19 15:59 02/08/19 16:01 DC 02/08/19 15:35 1,000 MLS/HR Vital Signs/I&O 02/08/19 02/08/19 15:20 19:15 Temp 98.4 Pulse 114 108 Resp 14 18 B/P (MAP) 126/95 (105) 133/82 (99) Pulse Ox 95 96 O2 Delivery Room Air Room Air Capillary Refill : Less Than 3 Seconds Blood Pressure Mean: 105 Progress Note : Progress Note Seen and evaluated. IV, labs, UA, normal saline 1 L bolus, EKG, UDS and CT head ordered. Monitor patient. 1805: I did discuss the case with Dr. Watson. She accepts patient for admission, observation status to ICU initially but this was changed at 2023 to medical unit with severe. Patient has not given urine sample. Agitation is improved with 1 mg of Ativan IV. Overall he has been compliant without distress during the ED stay. Heart rate remains at approximately 100 with O2 sat 96% on room air and blood pressure 145/87. Patient needs psychiatric treatment for his schizophrenia which is untreated and he currently has acute psychosis. He has requested to go to [facility] when cleared. This will be reevaluated tomorrow but his troponin is slightly bumped currently. This is likely related to demand ischemia as he has no EKG changes but it is indicated to recheck troponin and EKGs. Admit, observation status. Patient agrees to plan. ECG Initial ECG Impression Date: Feb 08, 2019 Initial ECG Impression Time: 16:31 Initial ECG Rate: 109 Initial ECG Rhythm: S.Tach Comment Sinus tachycardia with diffuse borderline ST depression. Similar to previous of 04/12/15. No evidence of ST elevation OK. Interpreted by me Diagnostic Imaging Diagonstic Imaging: CT Plain Films/CT/US/NM/MRI: head Comments [facility], [place] NAME: ARAM CHEN MED REC#: [id number] PT STATUS: REG ER : 1955 PHYSICIAN: RAMU MENA MD ADMIT DATE: 02/08/19/ER Draft Date of Exam:02/08/19 CT HEAD WO PROCEDURE: CT head without contrast. TECHNIQUE: Multiple contiguous axial images were obtained through the brain without the use of intravenous contrast. Auto Exposure Controls were utilized during the CT exam to meet ALARA standards for radiation dose reduction. INDICATION: Altered mental status CORRELATION STUDY: 10/23/2017 FINDINGS: There are diffuse atrophic changes with prominence of the ventricles and sulci. There are scattered areas of decreased attenuation, nonspecific but likely changes of chronic small vessel ischemic disease. There is otherwise normal zimmerman-white differentiation. No abnormal areas of attenuation to suggest edema from ischemia. There is no midline shift or mass effect. No evidence for acute intracranial hemorrhage or abnormal extra-axial fluid collection. Bony calvarium is intact. Paranasal sinuses are clear. Mastoid air cells also appear clear. IMPRESSION: 1. No CT evidence for acute intracranial abnormality. 2. Age-related atrophic changes with changes of small vessel ischemic disease. Dictated on workstation # [id number] Dict: 02/08/19 1719 Trans: 02/08/19 1720 DO [id number] Interpreted by: ABRAHAM GREEN DO Electronically signed by: Diagonstic Imaging: Xray Plain Films/CT/US/NM/MRI: chest Comments [facility] [place], [place] NAME: ARAM CHEN [facility] REC#: [id number] PT STATUS: REG ER : 1955 PHYSICIAN: RAMU MENA MD ADMIT DATE: 02/08/19/ER Draft Date of Exam:02/08/19 CHEST 1 VIEW, AP/PA ONLY INDICATION: Altered mental status. TECHNIQUE: Single-view chest at 05:55 p.m. CORRELATION STUDY: 09/11/2016. FINDINGS: Heart size and mediastinum are generally stable. Minimal areas of atelectasis at the lung bases. No definitive infiltrate. IMPRESSION: 1. Generally stable chest demonstrates no acute abnormality. Dictated on workstation # [id number] Dict: 02/08/19 1800 Trans: 02/08/19 1805 [id number] Interpreted by: ABRAHAM GREEN DO Electronically signed by: Departure Communication (Admissions) Time/Spoke to Admitting Phy: 18:14 Time/Spoke to Consulting Phy: 18:20 Impression Primary Impression: Acute psychosis Additional Impressions: Schizophrenia Qualified Codes: F20.9 - Schizophrenia, unspecified Diphenhydramine overdose of undetermined intent Qualified Codes: T45.0X4A - Poisoning by antiallergic and antiemetic drugs, undetermined, initial encounter Disposition: ADMITTED INPATIENT Condition: Stable Admissions Decision to Admit Reason: Admit from ER (General) Decision to Admit/Date: Feb 08, 2019 Time/Decision to Admit Time: 18:14 Departure-Patient Inst. Referrals: NO,LOCAL PHYSICIAN (PCP/Family) Primary Care Physician RAMU MENA MD Feb 08, 2019 16:51
--- NOTE | 2019-02-08 16:53 | NUR ---
Attempted to call Nuha Alvarez. No voicemail set up.
--- NOTE | 2019-02-08 17:21 | Diagnostic Imaging Report ---
PROCEDURE: CT head without contrast. TECHNIQUE: Multiple contiguous axial images were obtained through the brain without the use of intravenous contrast. Auto Exposure Controls were utilized during the CT exam to meet ALARA standards for radiation dose reduction. INDICATION: Altered mental status CORRELATION STUDY: 10/23/2017 FINDINGS: There are diffuse atrophic changes with prominence of the ventricles and sulci. There are scattered areas of decreased attenuation, nonspecific but likely changes of chronic small vessel ischemic disease. There is otherwise normal zimmerman-white differentiation. No abnormal areas of attenuation to suggest edema from ischemia. There is no midline shift or mass effect. No evidence for acute intracranial hemorrhage or abnormal extra-axial fluid collection. Bony calvarium is intact. Paranasal sinuses are clear. Mastoid air cells also appear clear. IMPRESSION: 1. No CT evidence for acute intracranial abnormality. 2. Age-related atrophic changes with changes of small vessel ischemic disease. Dictated by: Dictated on workstation # [id number]
[2019-02-08] MEDS ORDERED: LACTATED RINGERS 1,000 ML IV ONE (17:27)
--- NOTE | 2019-02-08 18:06 | Diagnostic Imaging Report ---
INDICATION: Altered mental status. TECHNIQUE: Single-view chest at 05:55 p.m. CORRELATION STUDY: 09/11/2016. FINDINGS: Heart size and mediastinum are generally stable. Minimal areas of atelectasis at the lung bases. No definitive infiltrate. IMPRESSION: 1. Generally stable chest demonstrates no acute abnormality. Dictated by: Dictated on workstation # [id number]
--- NOTE | 2019-02-08 18:15 | NUR ---
Alexa requested urine from pt again. Pt agitated and refused. DR. Trevino notified.
[2019-02-08] MEDS ORDERED: LORazepam INJ 2 MG/ML (ATIVAN) VIAL IVP ONE (18:30)
--- NOTE | 2019-02-08 18:55 | NUR ---
Report given to GOLD Abraham
[2019-02-08 19:15] VITALS: BP 133/82
--- NOTE | 2019-02-08 19:15 | NUR ---
pt denies being able to void at this time.
[2019-02-08 21:11] VITALS: BP 153/92
--- NOTE | 2019-02-08 21:11 | NUR ---
ARAM CHEN admitted to room 423-1, with an admitting diagnosis of ACUTE PSYCHOSIS AND BENADRYL OVERDOSE, on 02/08/19 from ED via BED/CART, accompanied by ED STAFF. ARAM CHEN introduced to surroundings, call light, bed controls, phone, TV, temperature control, lights, meal times, smoking policy, visitor policy, side rail policy, bathrooms and showers. Patient Rights given to patient in the handbook. ARAM CHEN verbalizes understanding that [facility] is not responsible for the loss or damage to any personal effects or valuables that are kept in the patients possession during their hospitalization.
[2019-02-08] MEDS: NS IV 1000 ML 1,000 ML IV SCH (21:35)
[2019-02-08] MEDS ORDERED: KETOROLAC 30 MG/ML VIAL IVP PRN (22:00)
[2019-02-08] MEDS ORDERED: LORazepam INJ 2 MG/ML (ATIVAN) VIAL IV PRN (22:00)
[2019-02-08] MEDS ORDERED: ZIPRASIDONE 20 MG INJ (GEODON) VIAL IM PRN (22:15)
[2019-02-08 23:12] VITALS: BP 148/80
[2019-02-09 03:23] LABS: BASOPHILS % (AUTO) 0 % (0-10); EOSINOPHILS # (AUTO) 0.1 10^3/uL (0.0-0.3); EOSINOPHILS % (AUTO) 1 % (0-10); HEMATOCRIT 44 % (40-54); HEMOGLOBIN 14.8 G/DL (13.3-17.7); LYMPHOCYTES # (AUTO) 1.9 X 10^3 (1.0-4.0); LYMPHOCYTES % (AUTO) 27 % (12-44); MEAN CORPUSCULAR HEMOGLOBIN 31 PG (25-34); MEAN CORPUSCULAR HGB CONC 34 G/DL (32-36); MEAN CORPUSCULAR VOLUME 93 FL (80-99); MEAN PLATELET VOLUME 8.4 FL (7.4-10.4); MONOCYTES # (AUTO) 0.6 X 10^3 (0.0-1.0); MONOCYTES % (AUTO) 9 % (0-12); NEUTROPHILS # (AUTO) 4.4 X 10^3 (1.8-7.8); NEUTROPHILS % (AUTO) 63 % (42-75); PLATELET COUNT 185 10^3/uL (130-400); RED CELL DISTRIBUTION WIDTH 14.1 % (10.0-14.5); WHITE BLOOD COUNT 6.9 10^3/uL (4.3-11.0)
[2019-02-09 03:47] LABS: ALANINE AMINOTRANSFERASE 15 U/L (0-55); ALBUMIN 3.5 GM/DL (3.2-4.5); ALKALINE PHOSPHATASE 88 U/L (40-136); BILIRUBIN,TOTAL 0.8 MG/DL (0.1-1.0); BUN/CREATININE RATIO 21; CALCIUM 8.3 MG/DL (8.5-10.1); CARBON DIOXIDE 23 MMOL/L (21-32); CHLORIDE 110 MMOL/L (98-107); GFR ESTIMATED > 60; GLUCOSE 99 MG/DL (70-105); POTASSIUM 3.5 MMOL/L (3.6-5.0); SODIUM 142 MMOL/L (135-145); TOTAL PROTEIN 5.6 GM/DL (6.4-8.2)
[2019-02-09 04:41] VITALS: BP 137/81
[2019-02-09] MEDS: NS IV 1000 ML 1,000 ML IV SCH ×3 (05:46→21:57)
[2019-02-09 07:08] LABS: BACTERIA,URINE NEGATIVE /HPF; BILIRUBIN,URINE NEGATIVE (NEGATIVE); CLARITY,URINE CLEAR; COLOR,URINE YELLOW; GLUCOSE, URINE (UA) NEGATIVE (NEGATIVE); KETONES,URINE NEGATIVE (NEGATIVE); LEUKOCYTE ESTERASE ,URINE 1+ (NEGATIVE); NITRITE,URINE NEGATIVE (NEGATIVE); PH,URINE 5 (5-9); PROTEIN,URINE NEGATIVE (NEGATIVE); RBC,URINE RARE /HPF; UROBILINOGEN,URINE NORMAL (NORMAL)
[2019-02-09 07:09] LABS: CALCIUM OXALATE CRYSTALS,UR FEW /LPF
[2019-02-09 07:11] LABS: AMPHETAMINE SCREEN, URINE NEGATIVE (NEGATIVE); BARBITURATE SCREEN URINE NEGATIVE (NEGATIVE); BENZODIAZEPINES SCREEN URINE POSITIVE (NEGATIVE); CANNABINOID SCREEN, URINE NEGATIVE (NEGATIVE); COCAINE SCREEN URINE NEGATIVE (NEGATIVE); METHADONE STAT NEGATIVE (NEGATIVE); METHAMPHETAMINE SCREEN URINE S NEGATIVE (NEGATIVE); OPIATE SCREEN URINE NEGATIVE (NEGATIVE); OXYCODONE STAT NEGATIVE (NEGATIVE); PROPOXYPHENE STAT NEGATIVE (NEGATIVE); TRICYCLIC ANTIDEPRESSANTS SCRE POSITIVE (NEGATIVE)
[2019-02-09 08:00] VITALS: BP 166/76
--- NOTE | 2019-02-09 08:17 | Consultation-Cardiology ---
HPI-Cardiology Cardiology Consultation Date of Consultation 02/09/19 Date of Admission Time Seen by Provider: 08:13 Indication: elevated troponin level HPI 63 years old gentleman with history of schizophrenia, admitted with acute psychosis, confused, had abnormal troponin level, I was called for evaluation, he denied any chest pain or shortness of breath. No palpitation, syncope or near syncopal episodes. Home Medications & Allergies Allergies: Coded Allergies: Phenothiazines (Verified Allergy, Unknown, 12/20/17) Home Medication List Reviewed: Yes [id number] Hx Patient Social History Marital Status: Alcohol Use: Denies Use Recreational Drug Use: No Type Used: Cigarettes 2nd Hand Smoke Exposure: Yes Recent Foreign Travel: No Recent Infectious Disease Expo: No Recent Hopitalizations: No Immunizations Up To Date Tetanus Booster (TDap): Unknown Date of Influenza Vaccine: May 29, 2018 Past Medical History unable to provide history Family Medical History Significant Family History: No Pertinent Family Hx Family Medical Hx unable to provide history Review of Systems-General Review of Systems Constitutional: see HPI, other (unable to provide review of systems) Respiratory: No see HPI, No cough, No dyspnea on exertion, No hemoptysis, No orthopnea, No phlegm, No short of breath, No stridor, No wheezing, No other Cardiovascular: No see HPI, No chest pain, No edema, No Hx of Intervention, No palpitations, No syncope, No vascular heart diseas, No other All Other Systems Reviewed Negative Unless Noted: No Reviewed Test Results Reviewed Test Results Lab Laboratory Tests Test 02/08/19 15:25 02/08/19 20:58 02/09/19 03:10 02/09/19 06:00 Range/Units White Blood Count 6.4 6.9 4.3-11.0 10^3/uL Red Blood Count 5.48 4.75 4.35-5.85 10^6/uL Hemoglobin 17.3 14.8 13.3-17.7 G/DL Hematocrit 50 44 40-54 % Mean Corpuscular Volume 91 93 80-99 FL Mean Corpuscular Hemoglobin 32 31 25-34 PG Mean Corpuscular Hemoglobin Concent 35 34 32-36 G/DL Red Cell Distribution Width 14.0 14.1 10.0-14.5 % Platelet Count 204 185 130-400 10^3/uL Mean Platelet Volume 8.7 8.4 7.4-10.4 FL Neutrophils (%) (Auto) 56 63 42-75 % Lymphocytes (%) (Auto) 33 27 12-44 % Monocytes (%) (Auto) 10 9 0-12 % Eosinophils (%) (Auto) 1 1 0-10 % Basophils (%) (Auto) 1 0 0-10 % Neutrophils # (Auto) 3.6 4.4 1.8-7.8 X 10^3 Lymphocytes # (Auto) 2.1 1.9 1.0-4.0 X 10^3 Monocytes # (Auto) 0.6 0.6 0.0-1.0 X 10^3 Eosinophils # (Auto) 0.1 0.1 0.0-0.3 10^3/uL Basophils # (Auto) 0.0 0.0 0.0-0.1 10^3/uL Sodium Level 143 142 135-145 MMOL/L Potassium Level 3.7 3.5 L 3.6-5.0 MMOL/L Chloride Level 107 110 H 98-107 MMOL/L Carbon Dioxide Level 27 23 21-32 MMOL/L Anion Gap 9 9 5-14 MMOL/L Blood Urea Nitrogen 23 H 15 7-18 MG/DL Creatinine 1.05 0.70 0.60-1.30 MG/DL Estimat Glomerular Filtration Rate > 60 > 60 BUN/Creatinine Ratio 22 21 Glucose Level 196 H 99 70-105 MG/DL Calcium Level 9.8 8.3 L 8.5-10.1 MG/DL Corrected Calcium 9.6 8.7 8.5-10.1 MG/DL Total Bilirubin 0.6 0.8 0.1-1.0 MG/DL Aspartate Amino Transf (AST/SGOT) 23 17 5-34 U/L Alanine Aminotransferase (ALT/SGPT) 21 15 0-55 U/L Alkaline Phosphatase 119 88 40-136 U/L Troponin I 0.037 H 0.056 H 0.039 H <0.028 NG/ML Total Protein 7.0 5.6 L 6.4-8.2 GM/DL Albumin 4.3 3.5 3.2-4.5 GM/DL TSH [place] Testing 3.84 0.35-4.94 UIU/ML Salicylates Level < 5.0 L 5.0-20.0 MG/DL Acetaminophen Level < 10 L 10-30 UG/ML Serum Alcohol < 10 <10 MG/DL Urine Color YELLOW Urine Clarity CLEAR Urine pH 5 5-9 Urine Specific [place] 1.020 1.016-1.022 Urine Protein NEGATIVE NEGATIVE Urine Glucose (UA) NEGATIVE NEGATIVE Urine Ketones NEGATIVE NEGATIVE Urine Nitrite NEGATIVE NEGATIVE Urine Bilirubin NEGATIVE NEGATIVE Urine Urobilinogen NORMAL NORMAL MG/DL Urine Leukocyte Esterase 1+ H NEGATIVE Urine RBC (Auto) 3+ H NEGATIVE Urine RBC RARE /HPF Urine WBC 2-5 /HPF Urine Crystals PRESENT H /LPF Urine Calcium Oxalate Crystals FEW H /LPF Urine Bacteria NEGATIVE /HPF Urine Casts NONE /LPF Urine Mucus SMALL H /LPF Urine Culture Indicated NO Urine Opiates Screen NEGATIVE NEGATIVE Urine Oxycodone Screen NEGATIVE NEGATIVE Urine Methadone Screen NEGATIVE NEGATIVE Urine Propoxyphene Screen NEGATIVE NEGATIVE Urine Barbiturates Screen NEGATIVE NEGATIVE Ur Tricyclic Antidepressants Screen POSITIVE H NEGATIVE Urine Phencyclidine Screen NEGATIVE NEGATIVE Urine Amphetamines Screen NEGATIVE NEGATIVE Urine Methamphetamines Screen NEGATIVE NEGATIVE Urine Benzodiazepines Screen POSITIVE H NEGATIVE Urine Cocaine Screen NEGATIVE NEGATIVE Urine Cannabinoids Screen NEGATIVE NEGATIVE Physical Exam Physical Exam Vital Signs Vital Signs - First Documented 02/08/19 15:20 Temp 98.4 Pulse 114 Resp 14 B/P (MAP) 126/95 (105) Pulse Ox 95 O2 Delivery Room Air Capillary Refill : Less Than 3 Seconds Height, Weight, BMI Height: 6'0.00" Weight: 229lbs. 4.8oz. 104.007527yv; 31.2 BMI Method:Estimated General Appearance: No Apparent Distress HEENT: PERRL/EOMI, Pharynx Normal, Other (moderate bilateral nasal congestion) Neck: Non Tender, Supple Respiratory: Lungs Clear, Normal Breath Sounds Cardiovascular: No Murmur, Tachycardia Gastrointestinal: Non Tender, Soft Back: Normal Inspection, No CVA Tenderness, No Vertebral Tenderness Extremity: Normal Range of Motion, Non Tender Neurologic/Psychiatric: Alert, Other (confused as to place and time but able to follow commands and Knows self.) Skin: Warm/Dry, Other (reddened appearing skin.) A/P-Cardiology Admission Diagnosis Acute psychosis Schizophrenia Elevated troponin Assessment/Plan Acute psychosis, patient is alert and oriented, needs psychiatry evaluation. Schizophrenia, patient will need psychiatry evaluation Abnormal troponin level of 0.039, it is not considered positive troponin. Patient is asymptomatic. EKG did not show any acute abnormality. I do not recommend any further testing at this point Clinical Quality Measures DVT/VTE Risk/Contraindication: Risk Factor Score Per Nursin RFS Level Per Nursing on Admit: 4+=Very High NAVI GHOTRA MD Feb 09, 2019 08:17
[2019-02-09] MEDS: ASPIRIN E.C. 325 MG (ECOTRIN) TABLET PO SCH (09:20)
[2019-02-09] MEDS ORDERED: DIPH25CA79 PO (09:32)
--- NOTE | 2019-02-09 09:43 | NUR ---
ASKED THE PATIENT ABOUT HIS MEDICATIONS HOWEVER HIS RESPONSE WAS NOT UNDERSTANDABLE. ACCORDING TO THE EXT MED HX AND KTRACS HE HAS NOT FILLED ANYTHING SINCE 01-04-19 AND THAT WAS A 5 DAY SUPPLY OF TRAMADOL. I VERIFIED WITH [facility] THEY HAVE NOT FILLED ANYTHING MORE RECENTLY. I ADDED BENADRYL DIRECTED TO THE MED REC SINCE IT WAS REPORTED THAT HE HAS BEEN TAKING IT HOWEVER I AM UNSURE OF THE FREQUENCY HE IS USING AT HOME. I LEFT THE OTHER OTC MED THAT HAD BEEN REVIEWED BY JESSICA AT HIS LAST VISIT. I REMOVED THE PAIN MEDICATIONS AT THIS TIME THEY WERE SHORT SUPPLIES THAT HAVE NOT BEEN FILLED IN OVER A MONTH.
--- NOTE | 2019-02-09 11:09 | History & Physical-Hospitalist ---
History of Present Illness HPI/Chief Complaint CC: Acute psychosis HPI: Per ER report: Pt to ED via EMS. EMS reporst picking pt up at [facility]. EMS report being called by trailhead construction worker who reports pt had been walking around complex for approximately 30 minutes and was trying to open door knobs. Pt reportedly lives approximately one block from the area. EMS reports pt told EMS there is a beast in the pt's stomach. Upon arrival pt disheveled, slurring words and incoherent. Pt unable to answer questions for assessment. Pt barefoot. Patient refuses to be examined. He did allow the echocardiogram to be completed per cardiology orders. Patient refuses to eat. Apparently he has been without his schizophrenic meds for the past one year per his ex-. He has been taking Benadryl to curb his psychotic symptoms. Source: patient Exam Limitations: no limitations Date Seen 02/09/19 Time Seen by a Provider: 09:30 Attending Physician Cheli Terrell DO PCP No,Local Physician Referring Physician Date of Admission Feb 08, 2019 at 20:45 Home Medications & Allergies Home Medications Reviewed patient Home Medication Reconciliation performed by pharmacy medication reconciliations sow farm technician and/or nursing. Patients Allergies have been reviewed. Allergies Allergies Coded Allergies Phenothiazines (Verified Allergy, Unknown, 12/20/17) Past Hiwugpr-Kdrsma-Bdzljv Hx Past Med/Social Hx: Reviewed Nursing Past Med/Soc Hx, Reviewed and Corrections made Patient Social History Marrital Status: Alcohol Use: Denies Use Recreational Drug Use: No Smoking Status: Unknown if Ever Smoked Type Used: Cigarettes 2nd Hand Smoke Exposure: Yes Recent Foreign Travel: No Contact w/other who traveled: No Recent Hopitalizations: No Recent Infectious Disease Expo: No Immunizations Up To Date Tetanus Booster (TDap): Unknown Pediatric: No Date of Influenza Vaccine: May 29, 2018 Seasonal Allergies Seasonal Allergies: No Past Medical History Surgeries: Abdominal, Appendectomy, Bowel Surgery Currently Using CPAP: No Cardiac: Chronic Edema/Swelling Reproductive: No Sexually Transmitted Disease: No HIV/AIDS: No Gastrointestinal: Irritable Bowel Musculoskeletal: Chronic Back Pain Loss of Vision: Denies Hearing Impairment: Denies Psychosocial: Sleep Difficulties, Anxiety, Schizophrenia History of Blood Disorders: No Adverse Reaction to Blood Estrella: No (N/A) Family History Reviewed Nursing Family Hx No Pertinent Family Hx Review of Systems Constitutional: see HPI Physical Exam Physical Exam Vital Signs Vital Signs - First Documented 02/08/19 15:20 Temp 98.4 Pulse 114 Resp 14 B/P (MAP) 126/95 (105) Pulse Ox 95 O2 Delivery Room Air Capillary Refill : Less Than 3 Seconds Height, Weight, BMI Height: 6'0.00" Weight: 229lbs. 4.8oz. 104.212166qk; 31.2 BMI Method:Estimated General Appearance: No Apparent Distress, WD/WN, Chronically ill, Other (Babbling incoherently, refuses exam) HEENT: PERRL/EOMI Results Results/Procedures Labs Laboratory Tests 02/08/19 15:25 02/09/19 03:10 Patient resulted labs reviewed. Assessment/Plan Admission Diagnosis Assessment: Acute psychosis Schizophrenia noncompliant with meds for 1 year Benadryl overdose Elevated troponin but no major concern per cardiology Dehydration maintained on IV fluid Plan: Psychiatric evaluation Sitter Admission Status: Observation Diagnosis/Problems Diagnosis/Problems (1) Acute psychosis Status: Acute (2) Schizophrenia Status: Chronic Qualifiers: Schizophrenia type: unspecified Qualified Codes: F20.9 - Schizophrenia, unspecified (3) Diphenhydramine overdose of undetermined intent Status: Acute Qualifiers: Encounter type: initial encounter Qualified Codes: T45.0X4A - Poisoning by antiallergic and antiemetic drugs, undetermined, initial encounter (4) Non-compliance Status: Chronic (5) Dehydration Status: Acute Clinical Quality Measures DVT/VTE Risk/Contraindication: Risk Factor Score Per Nursin RFS Level Per Nursing on Admit: 4+=Very High CHELI TERRELL DO Feb 09, 2019 11:09
--- NOTE | 2019-02-09 11:27 | NUR ---
CM/SS patient would like [facility] placement, message was left for [facility] Intake. Referral also sent to [facility] also.
[2019-02-09 11:33] VITALS: BP 160/98
--- NOTE | 2019-02-09 14:21 | NUR ---
CM/SS Maday [facility] came out to evaluate and they do not feel he could sign himself in for admission. He scored a 5 / 30 on mental status evaluation. [facility] notified and will screen for possible involuntary placement.
[2019-02-09 15:05] VITALS: BP 159/91
--- NOTE | 2019-02-09 16:02 | NUR ---
CM/SS Richie Peak with [facility] ([phone]) came and evaluated the patient. Patient likely will screen in for involuntary placement. Richie will send in the paperwork and speak with the triage nurse and find out about bed availability. Provided him with direct number for the patient's RN as SW is not here that late in the day.
[2019-02-09 19:00] VITALS: BP 140/78
[2019-02-10] VITALS (9 sets, daily range): BP systolic 101–193; BP diastolic 61–93
[2019-02-10] MEDS: NS IV 1000 ML 1,000 ML IV SCH (05:58)
[2019-02-10] MEDS: ASPIRIN E.C. 325 MG (ECOTRIN) TABLET PO SCH (07:55)
[2019-02-10] MEDS ORDERED: CATHETER FLUSH 10 ML SYR IV PRN (10:00)
--- NOTE | 2019-02-10 10:26 | NUR ---
NURSING LEATHER TANNER PULLED SITTER. TELESITTER INITIATED. BED ALARM ON. ATTEMPTED TO REACH [place] FOR DR. HERNANDEZ, BUT STILL NO RESPONSE.
--- NOTE | 2019-02-10 10:45 | Progress Note-Hospitalist ---
Subjective HPI/CC On Admission Date Seen by Provider: Feb 10, 2019 Time Seen by Provider: 10:00 CC: Acute psychosis HPI: Per ER report: Pt to ED via EMS. EMS reporst picking pt up at [facility]. EMS report being called by manager of construction who reports pt had been walking around complex for approximately 30 minutes and was trying to open door knobs. Pt reportedly lives approximately one block from the area. EMS reports pt told EMS there is a beast in the pt's stomach. Upon arrival pt disheveled, slurring words and incoherent. Pt unable to answer questions for assessment. Pt barefoot. Patient refuses to be examined. He did allow the echocardiogram to be completed per cardiology orders. Patient refuses to eat. Apparently he has been without his schizophrenic meds for the past one year per his ex-. He has been taking Benadryl to curb his psychotic symptoms. Subjective/Events-last exam Patient times will answer simple questions but for the most part is talking nonsense. Bedside sitter states that he is easily redirected after making comments such as wanting to walk outside through the window. He reference that he was going to venous and [place] at one point during our conversation. When asked about whether there was medication for schizophrenia that he felt he got along with the best he stated that he hated all of them and became rather agitated. He refuses physical examination. Objective Exam Vital Signs Vital Signs Date Time Temp Pulse Resp B/P (MAP) Pulse Ox O2 Delivery O2 Flow Rate FiO2 02/10/19 08:04 96 Room Air 02/10/19 07:58 97.5 72 18 158/93 (114) Capillary Refill : Less Than 3 SecondsLess Than 3 Seconds General Appearance: No Apparent Distress, WD/WN, Chronically ill, Other (Babbling incoherently, refuses exam) HEENT: PERRL/EOMI Neck: Non Tender, Supple Respiratory: Lungs Clear, Normal Breath Sounds Cardiovascular: No Murmur, Tachycardia Gastrointestinal: Non Tender, Soft Back: Normal Inspection, No CVA Tenderness, No Vertebral Tenderness Extremity: Normal Range of Motion, Non Tender Neurologic/Psychiatric: Alert, Other (confused as to place and time but able to follow commands and Knows self.) Skin: Warm/Dry, Other (reddened appearing skin.) Results/Procedures Lab Patient resulted labs reviewed. Assessment/Plan Assessment and Plan Assess & Plan/Chief Complaint 1. Ignore the above auto populated physical examination the patient was not examined today due to refusal but did not appear to be in acute distress. Number 2. Altered mental status due to overdose patient tested positive for benzodiazepines and apparently also had access to Benadryl he is likely back to baseline mental status without any evidence for oversedation has been eating and drinking without difficulty so we will DC IV fluids. 3. Schizophrenia psychosis due to medication noncompliance waiting for psych facility placement. Suspect long-acting Depakote antipsychotic medication is going to be his best and likely only option to be effective in schizophrenia management going forward. Clinical Quality Measures DVT/VTE Risk/Contraindication: Risk Factor Score Per Nursin RFS Level Per Nursing on Admit: 4+=Very High ALLAN HERNANDEZ MD Feb 10, 2019 10:45
[2019-02-10] MEDS: CATHETER FLUSH 10 ML SYR IV SCH ×2 (13:06→22:13)
--- NOTE | 2019-02-10 15:44 | Progress Note-Cardiology ---
Cardiology SOAP Progress Note Subjective: No cp or palp or shortness of breath or syncope Objective: I&O/Vital Signs 02/10/19 02/10/19 02/10/19 02/10/19 04:00 07:00 07:58 08:04 Temp 97.3 97.5 Pulse 64 89 72 Resp 24 18 B/P (MAP) 101/66 (78) 158/93 (114) Pulse Ox 96 96 96 O2 Delivery Room Air Room Air Room Air 02/10/19 02/10/19 12:00 12:38 Temp 97.8 Pulse 65 65 Resp 18 B/P (MAP) 174/84 (114) Pulse Ox 96 O2 Delivery Room Air 02/10/19 00:00 Intake Total 4880 ml Output Total 1225 ml Balance 3655 ml Weight (Pounds): 229 Weight (Ounces): 4.8 Weight (Calculated Kilograms): 104.149760 Constitutional: well-developed, well-nourished, other (difficult to determine orientation; gives vague answers to questions) Respiratory: No accessory muscle use; other (good bilat air entry, diminished at the bases) Cardiovascular: regular rate-rhythm, S1 and S2, systolic murmur (faint CHARLES at card base) Gastrointestional: No tender; soft; No guarding, No rebound; audible bowel sounds Extremities: No clubbing, No cyanosis, No significant edema Neurologic/Psychiatric: other (mental state exam is as above, seems to be able to move all limbs equally) Skin: No rash on exposed areas, No ulcerations on exposed areas Results/Procedures: Labs Laboratory Tests 02/09/19 03:10 A/P: Assessment: Acute psychosis, managed by Dr Terrell Schizophrenia, managed by Dr Terrell Minimal troponin elevation that appears chronic, is flat, and is unassociated with any clinical evidence of ACS (no evidence of Type 1 or Type 2 [place]) Echo of 02/09/19: LVEF 55-65%, no wall motion abnormality, PASP 25 mmHg Hypertension Plan: * I reviewed his chart, spoke with him, and examined him * BP is elevated. We recommend therapy with amlodipine CHUCK GRIFFITHS [facility] Feb 10, 2019 15:44
[2019-02-10] MEDS ORDERED: amLODIPine 5 MG (NORVASC) TAB PO NR (15:50)
--- NOTE | 2019-02-10 17:23 | NUR ---
VISITOR AT BEDSIDE REQUESTING INFORMATION ABOUT PT. PT MORE COHERENT AND WILL NOT GIVE PERMISSION AT THIS TIME FOR ME TO SPEAK TO VISITOR.
[2019-02-11 04:00] VITALS: BP 116/71
[2019-02-11] MEDS: CATHETER FLUSH 10 ML SYR IV SCH ×3 (05:03→21:50)
[2019-02-11 08:00] VITALS: BP 170/83
[2019-02-11] MEDS: ASPIRIN E.C. 325 MG (ECOTRIN) TABLET PO SCH (08:56)
[2019-02-11] MEDS ORDERED: amLODIPine 5 MG (NORVASC) TAB PO SCH (09:00)
--- NOTE | 2019-02-11 11:26 | Progress Note-Hospitalist ---
Progress Note Progress Notes/Assess & Plan Date Seen 02/11/19 Time Seen by Provider: 11:00 Assessment & Plan Patient becomes agitated with the appearance of medical staff especially physicians. For this reason and the fact that we are just waiting on a hospital bed and also wanted me history was taken from the nurse who states that he is taking his antihypertensive medication and aspirin today. He is not been a threat to himself with one-on-one monitoring and has not been a threat to staff. He is medically stable for transfer to also wanted me when bed is available. Vital signs of been stable and appetite is good. ALLAN HERNANDEZ MD Feb 11, 2019 11:26
[2019-02-11] MEDS ORDERED: ASPI81TA16 PO (11:35)
[2019-02-11] MEDS ORDERED: AMLO5TAB9 PO (11:35)
[2019-02-11 12:00] VITALS: BP 167/94
--- NOTE | 2019-02-11 14:52 | Progress Note-Cardiology ---
Cardiology SOAP Progress Note Subjective: He does not report cp or palp or syncope or shortness of breath Objective: I&O/Vital Signs 02/11/19 02/11/19 02/11/19 02/11/19 04:00 07:00 07:58 08:00 Temp 98.3 97.8 Pulse 70 67 76 Resp 20 20 B/P (MAP) 116/71 (86) 170/83 (112) Pulse Ox 93 95 O2 Delivery Room Air Room Air Room Air 02/11/19 02/11/19 12:00 13:00 Temp 97.0 Pulse 74 69 Resp 20 B/P (MAP) 167/94 (118) Pulse Ox 97 O2 Delivery Room Air 02/11/19 00:00 Intake Total 2260 ml Output Total 400 ml Balance 1860 ml Weight (Pounds): 229 Weight (Ounces): 4.8 Weight (Calculated Kilograms): 104.289337 Constitutional: well-developed, well-nourished, other (difficult to determine orientation; gives vague answers to questions) Respiratory: No accessory muscle use; other (good bilat air entry, diminished at the bases) Cardiovascular: regular rate-rhythm, S1 and S2, systolic murmur (faint CHARLES at card base) Gastrointestional: No tender; soft; No guarding, No rebound; audible bowel soun ds Extremities: No clubbing, No cyanosis, No significant edema Neurologic/Psychiatric: other (mental state exam is as above, seems to be able to move all limbs equally) Skin: No rash on exposed areas, No ulcerations on exposed areas A/P: Assessment: Acute psychosis, managed by Dr Terrell Schizophrenia, managed by Dr Terrell Minimal troponin elevation that appears chronic, is flat, and is unassociated with any clinical evidence of ACS (no evidence of Type 1 or Type 2 [place]) Echo of 02/09/19: LVEF 55-65%, no wall motion abnormality, PASP 25 mmHg Hypertension Plan: * BP intermittently elevated. Amlodipine added to the regimen yesterday CHUCK GRIFFITHS MD FACP [facility] CCDS Feb 11, 2019 14:52
[2019-02-11 16:00] VITALS: BP 168/82
[2019-02-11 20:00] VITALS: BP 163/78
[2019-02-12] VITALS (8 sets, daily range): BP systolic 133–187; BP diastolic 74–95
--- NOTE | 2019-02-12 01:30 | NUR ---
STAT EKG per protocol due to Extractions Technician Tech notifying at 0115 that pt is in AFIB. EKG confirmed AFIB. Will notify Dr. Stone.
--- NOTE | 2019-02-12 01:38 | NUR ---
Dr. Stone notified of pt currently in AFIB. New orders rec to DC daily Norvasc and Aspirin. New orders for Cardizem 240mg po - start now & Daily and Eliqis 5mg po start now & BID. Will continue to monitor.
[2019-02-12] MEDS ORDERED: APIXABAN 5 MG (ELIQUIS) TABLET ONE (01:41)
[2019-02-12] MEDS ORDERED: DILTIAZEM 240 MG (CARDIZEM CD) CAP PO ONE (01:41)
[2019-02-12] MEDS: APIXABAN 5 MG (ELIQUIS) TABLET PO SCH ×2 (01:47→08:44)
[2019-02-12] MEDS: DILTIAZEM 240 MG (CARDIZEM CD) CAP PO SCH ×2 (01:47→08:44)
--- NOTE | 2019-02-12 02:00 | NUR ---
Notified by Joss House Keeper that pt is back in Sinus Rhythm, but HR remains over 100. Will continue to monitor.
[2019-02-12] MEDS: CATHETER FLUSH 10 ML SYR IV SCH ×2 (05:56→14:35)
--- NOTE | 2019-02-12 08:47 | NUR ---
PRIOR TO A.M. MEDICATIONS PULSE WAS 95 BPM, B/P WAS 138/87.
--- NOTE | 2019-02-12 09:20 | NUR ---
CM/SS called Richie Jon to follow up, he feels that bed will be available likely this day for the patient. He will update when he hears further. Facility will want a RN to RN and DR to
--- NOTE | 2019-02-12 13:15 | NUR ---
REPORT [id number] DONE WITH GOLD HENDERSON AT THIS TIME. THIS PATIENT WILL BE CONSIDERED FOR ADMISSION AFTER [id number] HAS BEEN COMPLETED AND REVIEWED BY [facility] STAFF. THIS RN WILL CONT TO MONITOR THIS PATIENT UNTIL A DEFINITE DECISION HAS BEEN MADE BY THIS FACILITY.
--- NOTE | 2019-02-12 13:41 | Discharge Summary-Hospitalist ---
Diagnosis/Chief Complaint Date of Admission Feb 08, 2019 at 20:45 Date of Discharge Discharge Date: Feb 12, 2019 Admission Diagnosis Assessment: Acute psychosis Schizophrenia noncompliant with meds for 1 year Benadryl overdose Elevated troponin but no major concern per cardiology Dehydration maintained on IV fluid Plan: Psychiatric evaluation Sitter Discharge Diagnosis (1) Acute psychosis Status: Acute (2) Schizophrenia Status: Chronic (3) Diphenhydramine overdose of undetermined intent Status: Acute (4) Atrial fibrillation Assessment & Plan: I am unsure if this is new or chronic but rate was well controlled with Cardizem and he was started on Eliquis for anticoagulation (5) Non-compliance Status: Chronic (6) Dehydration Status: Acute Discharge Summary Discharge Physical Exam Allergies: Coded Allergies: Phenothiazines (Verified Allergy, Unknown, 12/20/17) Vitals & I&Os Vital Signs Date Time Temp Pulse Resp B/P (MAP) Pulse Ox O2 Delivery O2 Flow Rate FiO2 02/12/19 18:30 103 20 133/74 94 Room Air 02/12/19 16:15 98.1 General Appearance: No Apparent Distress Respiratory: No Accessory Muscle Use, No Respiratory Distress Neurologic/Psychiatric: Alert, Disoriented, Other (slurred speech) Hospital Course Pt was admitted for acute psychosis after being found outside attempting to get in to other homes near his apartment. He had quit taking his medications for his schizophrenia and was instead taking Benadryl. Today he stated to me that malt-o-meal would treat his seizures but then immediately denied every having seizures. He was deemed unable to make his own decisions after being evaluation by the Mental Health Screener Richie Jon. Admission to [facility] was then pursued and he was transferred there for further treatment. He was accepted in transfer by Dr Medeiros (Psych) and Dr Price (IM). Labs (last 24 hrs) Patient resulted labs reviewed. Discussion & Recommendations Discharge Planning: >30 minutes discharge planning Discharge Home Medications: Active Scripts Active Eliquis (Apixaban) 5 Mg Tablet 5 Mg PO BID Diltiazem 24Hr Cd (Diltiazem HCl) 240 Mg Cap.er.24h 240 Mg PO DAILY Instructions to patient/family Please see electronic discharge instructions given to patient. Clinical Quality Measures DVT/VTE Risk/Contraindication: Risk Factor Score Per Nursin RFS Level Per Nursing on Admit: 4+=Very High Problem Qualifiers (1) Schizophrenia: Schizophrenia type: unspecified Qualified Codes: F20.9 - Schizophrenia, unspecified (2) Diphenhydramine overdose of undetermined intent: Encounter type: initial encounter Qualified Codes: T45.0X4A - Poisoning by antiallergic and antiemetic drugs, undetermined, initial encounter (3) Atrial fibrillation: Atrial fibrillation type: paroxysmal Qualified Codes: I48.0 - Paroxysmal atrial fibrillation DWAYNE ALEX MD Feb 12, 2019 13:41
--- NOTE | 2019-02-12 15:20 | NUR ---
Pastoral care visit.
[2019-02-12] MEDS ORDERED: DILT240C97 PO (16:13)
[2019-02-12] MEDS ORDERED: APIX5TAB PO (16:13)
--- NOTE | 2019-02-12 16:24 | NUR ---
CM/SS patient has been accepted for transfer to [facility]. Notified Richie Danay of the patient's acceptance to [facility], he will arrange for police transport for this day.
--- NOTE | 2019-02-12 18:33 | Progress Note-Cardiology ---
Cardiology SOAP Progress Note Subjective: Pt seen at 6 pm More alert today. Denies cp or palp or syncope or shortness of breath at rest Objective: I&O/Vital Signs 02/12/19 02/12/19 02/12/19 02/12/19 07:00 08:00 08:00 12:00 Temp 97.8 97.6 Pulse 101 95 90 Resp 18 18 B/P (MAP) 138/87 (104) 138/81 (100) Pulse Ox 94 94 93 O2 Delivery Room Air Room Air Room Air 02/12/19 02/12/19 13:00 16:15 Temp 98.1 Pulse 103 103 Resp 20 B/P (MAP) 133/74 (93) Pulse Ox 94 O2 Delivery Room Air 02/12/19 00:00 Intake Total 220 ml Balance 220 ml Weight (Pounds): 229 Weight (Ounces): 4.8 Weight (Calculated Kilograms): 104.964135 Constitutional: well-developed, well-nourished, other (Seems oriented to place and person today (not clearly to time)) Respiratory: No accessory muscle use; other (good bilat air entry, diminished at the bases) Cardiovascular: regular rate-rhythm, S1 and S2, systolic murmur (2/6 CHARLES at card base) Gastrointestional: No tender; soft; No guarding, No rebound; audible bowel sounds Extremities: No clubbing, No cyanosis, No significant edema Neurologic/Psychiatric: other (mental state exam is as above, seems to be able to move all limbs equally) Skin: No rash on exposed areas, No ulcerations on exposed areas A/P: Assessment: Acute psychosis, managed by Dr Terrell Schizophrenia, managed by Dr Terrell Minimal troponin elevation that appears chronic, is flat, and is unassociated with any clinical evidence of ACS (no evidence of Type 1 or Type 2 [place]) Echo of 02/09/19 (Dr Niño): LVEF 55-65%, no wall motion abnormality, PASP 25 mmHg Hypertension Plan: * Cardiac status stable * Outpt card f/u with CHUCK Quiñones MD FACP [facility] CCDS Feb 12, 2019 18:33
== END 2019-02-12 18:30 ==
LOC: ER 15:20 → EDUNIT# 15:20 → 4TH 20:45 → UNDOADMOB 20:45 → 4TH 21:11 → UNDODISOB 02-12 18:30
PROVIDERS: ADMIT Internal Medicine; ATTEND Internal Medicine
DX: F23 Brief psychotic disorder (principal); T45.0X4A Poisoning by antiallergic and antiemetic drugs, undetermined, initial encounter; E86.0 Dehydration; I10 Essential (primary) hypertension; J44.9 Chronic obstructive pulmonary disease, unspecified; I07.1 Rheumatic tricuspid insufficiency; R60.9 Edema, unspecified; F41.9 Anxiety disorder, unspecified; G47.30 Sleep apnea, unspecified; F17.210 Nicotine dependence, cigarettes, uncomplicated; Z91.14 Patient's other noncompliance with medication regimen; Z79.899 Other long term (current) drug therapy
CPT/HCPCS: 36415; 70450; 71045; 80053; 80306; 80320; 80329; 81000; 84443; 84484; 85025; 93005; 93041; 93306; 96361; 96374; G0378

== ENCOUNTER 2020-03-19 19:09 | Observation (INO) | payer MEDICARE ==
[~2020-03-19] VITALS: Ht 170 cm; Wt 117.5 kg
[~2020-03-19 19:09] MED LIST changes: +AMLO5TAB9 PO; +APIX5TAB PO; +ASPI81TA16 PO; -DIAZ5TAB3 PO; +DIAZ5TAB49 PO; +DILT240C92 PO; +DIPH25CA79 PO; -HYDR-3816 PO
[2020-03-19] MEDS ORDERED: NS IV 1000 ML 1,000 ML IV SCH (19:15)
[2020-03-19] MEDS ORDERED: LORazepam INJ 2 MG/ML (ATIVAN) VIAL IVP ONE (19:15)
--- NOTE | 2020-03-19 19:22 | ED General ---
General Chief Complaint: General Problems/Pain Stated Complaint: EXPOSURE Source of Information: EMS Exam Limitations: No Limitations History of Present Illness Date Seen by Provider: Mar 19, 2020 Time Seen by Provider: 19:18 Initial Comments To ER by EMS from [place] where he has allegedly been for a couple of hours today. Staff was concerned that perhaps he had a seizure so they summoned all. He reported that he had taken about 6 Benadryl today. He has an extensive psychiatric history. He has a bottle of Benadryl in his pocket with 7 left, 100 were in the bottle originally. Timing/Duration: 1-2 Days Severity: Moderate Allergies and Home Medications Allergies Coded Allergies: Phenothiazines (Verified Allergy, Unknown, 12/20/17) Home Medications Apixaban 5 Mg Tablet, 5 MG PO BID Prescribed by: DWAYNE ALEX on 02/12/19 1613 Diltiazem HCl 240 Mg Cap.er.24h, 240 MG PO DAILY Prescribed by: DWAYNE ALEX on 02/12/19 1613 Patient Home Medication List Home Medication List Reviewed: Yes Review of Systems Review of Systems Constitutional: see HPI, other (difficult to obtain) EENTM: see HPI Respiratory: no symptoms reported Cardiovascular: no symptoms reported Genitourinary: no symptoms reported Musculoskeletal: no symptoms reported Skin: no symptoms reported, see HPI Past Ldpfcll-Gwwpti-Vuowmc Hx Patient Social History Type Used: Cigarettes 2nd Hand Smoke Exposure: Yes Recent Hopitalizations: No Immunizations Up To Date Tetanus Booster (TDap): Unknown PED Vaccines UTD: No Date of Influenza Vaccine: May 29, 2018 Seasonal Allergies Seasonal Allergies: No Past Medical History Surgeries: Yes ( COLON RESECTION FOR BENIGN TUMOR; PILONIDAL CYST X 2, hernia ) Abdominal, Appendectomy, Bowel Surgery Respiratory: Yes Sleep Apnea, COPD Currently Using CPAP: No Cardiac: Yes Chronic Edema/Swelling Neurological: No Reproductive Disorders: No Sexually Transmitted Disease: No HIV/AIDS: No Genitourinary: No Gastrointestinal: Yes (COLON RESECTION FOR BENIGN TUMOR) Irritable Bowel Musculoskeletal: Yes Chronic Back Pain Endocrine: No HEENT: No Loss of Vision: Denies Hearing Impairment: Denies Cancer: No Psychosocial: Yes (NON-COMPLIANT WITH MEDICATIONS) Sleep Difficulties, Anxiety, Schizophrenia Integumentary: No Blood Disorders: No Adverse Reaction/Blood Tranf: No (N/A) Family Medical History No Pertinent Family Hx Physical Exam Vital Signs Vital Signs - First Documented 03/19/20 19:14 Temp 36.6 Pulse 106 Resp 20 B/P (MAP) 128/85 (99) Pulse Ox 96 O2 Delivery Room Air Capillary Refill : Height, Weight, BMI Height: 6'0.00" Weight: 229lbs. 4.8oz. 104.095792gy; 31.2 BMI Method:Estimated General Appearance: No Apparent Distress, WD/WN Eyes: Bilateral Eye Normal Inspection, Bilateral Eye PERRL, Bilateral Eye EOMI HEENT: PERRL/EOMI, TMs Normal, Normal ENT Inspection (dry mucous membrane, small minimally reactive pupils, tachycardia, flushed skin, incoherent speech) Respiratory: No Accessory Muscle Use, No Respiratory Distress Cardiovascular: Normal Peripheral Pulses, Tachycardia Gastrointestinal: Normal Bowel Sounds, Non Tender, Soft Extremity: Normal Capillary Refill, Normal Inspection Neurologic/Psychiatric: Alert Skin: Normal Color, Warm/Dry, Other Progress/Results/Core Measures Suspected Sepsis SIRS Temperature: Pulse: Respiratory Rate: Laboratory Tests 03/19/20 19:25: White Blood Count 10.9 Blood Pressure / Mean: Laboratory Tests 03/19/20 19:25: Creatinine 1.01, Platelet Count 223, Total Bilirubin 1.2H Results/Orders Lab Results Laboratory Tests Test 03/19/20 19:25 03/19/20 20:40 Range/Units White Blood Count 10.9 4.3-11.0 10^3/uL Red Blood Count 4.98 4.35-5.85 10^6/uL Hemoglobin 16.1 13.3-17.7 G/DL Hematocrit 47 40-54 % Mean Corpuscular Volume 95 80-99 FL Mean Corpuscular Hemoglobin 32 25-34 PG Mean Corpuscular Hemoglobin Concent 34 32-36 G/DL Red Cell Distribution Width 13.7 10.0-14.5 % Platelet Count 223 130-400 10^3/uL Mean Platelet Volume 8.9 7.4-10.4 FL Neutrophils (%) (Auto) 68 42-75 % Lymphocytes (%) (Auto) 21 12-44 % Monocytes (%) (Auto) 10 0-12 % Eosinophils (%) (Auto) 1 0-10 % Basophils (%) (Auto) 0 0-10 % Neutrophils # (Auto) 7.4 1.8-7.8 X 10^3 Lymphocytes # (Auto) 2.3 1.0-4.0 X 10^3 Monocytes # (Auto) 1.1 H 0.0-1.0 X 10^3 Eosinophils # (Auto) 0.1 0.0-0.3 10^3/uL Basophils # (Auto) 0.0 0.0-0.1 10^3/uL Sodium Level 142 135-145 MMOL/L Potassium Level 3.9 3.6-5.0 MMOL/L Chloride Level 107 98-107 MMOL/L Carbon Dioxide Level 22 21-32 MMOL/L Anion Gap 13 5-14 MMOL/L Blood Urea Nitrogen 11 7-18 MG/DL Creatinine 1.01 0.60-1.30 MG/DL Estimat Glomerular Filtration Rate > 60 BUN/Creatinine Ratio 11 Glucose Level 134 H 70-105 MG/DL Calcium Level 8.9 8.5-10.1 MG/DL Corrected Calcium 9.1 8.5-10.1 MG/DL Magnesium Level 2.0 1.6-2.4 MG/DL Total Bilirubin 1.2 H 0.1-1.0 MG/DL Aspartate Amino Transf (AST/SGOT) 27 5-34 U/L Alanine Aminotransferase (ALT/SGPT) 17 0-55 U/L Alkaline Phosphatase 75 40-136 U/L Total Protein 6.2 L 6.4-8.2 GM/DL Albumin 3.8 3.2-4.5 GM/DL Salicylates Level < 5.0 L 5.0-20.0 MG/DL Acetaminophen Level < 10 L 10-30 UG/ML Serum Alcohol < 10 <10 MG/DL Urine Color YELLOW Urine Clarity CLEAR Urine pH 6.0 5-9 Urine Specific [place] 1.025 H 1.016-1.022 Urine Protein NEGATIVE NEGATIVE Urine Glucose (UA) NEGATIVE NEGATIVE Urine Ketones NEGATIVE NEGATIVE Urine Nitrite POSITIVE H NEGATIVE Urine Bilirubin NEGATIVE NEGATIVE Urine Urobilinogen 4.0 < = 1.0 MG/DL Urine Leukocyte Esterase 1+ H NEGATIVE Urine RBC (Auto) 1+ H NEGATIVE Urine RBC NONE /HPF Urine WBC 5-10 H /HPF Urine Squamous Epithelial Cells RARE /HPF Urine Crystals PRESENT H /LPF Urine Amorphous Sediment MOD BRANDY URATES H /LPF Urine Bacteria FEW H /HPF Urine Casts NONE /LPF Urine Hyaline Casts RARE /LPF Urine Mucus SMALL H /LPF Urine Culture Indicated YES Urine Opiates Screen NEGATIVE NEGATIVE Urine Oxycodone Screen NEGATIVE NEGATIVE Urine Methadone Screen NEGATIVE NEGATIVE Urine Propoxyphene Screen NEGATIVE NEGATIVE Urine Barbiturates Screen NEGATIVE NEGATIVE Ur Tricyclic Antidepressants Screen NEGATIVE NEGATIVE Urine Phencyclidine Screen NEGATIVE NEGATIVE Urine Amphetamines Screen NEGATIVE NEGATIVE Urine Methamphetamines Screen NEGATIVE NEGATIVE Urine Benzodiazepines Screen NEGATIVE NEGATIVE Urine Cocaine Screen NEGATIVE NEGATIVE Urine Cannabinoids Screen NEGATIVE NEGATIVE My Orders Orders - 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 Cbc With Automated Diff (03/19/20 19:15) Comprehensive Metabolic Panel (03/19/20 19:15) Ua Culture If Indicated (03/19/20 19:15) Salicylate (03/19/20 19:15) Acetaminophen (03/19/20 19:15) Alcohol (03/19/20 19:15) Ekg Tracing (03/19/20 19:15) Lorazepam Injection (Ativan Injection) (03/19/20 19:15) Ns Iv 1000 Ml (Sodium Chloride 0.9%) (03/19/20 19:15) Drug Screen Stat (Urine) (03/19/20 19:23) Ed Iv/Invasive Line Start (03/19/20 19:24) Ekg Tracing (03/19/20 20:23) Chest 1 View, Ap/Pa Only (03/19/20 20:25) Magnesium (03/19/20 20:35) Atropine Injection (Atropine Injection) (03/19/20 20:45) Physostigmine Injection (Antilirium Inje (03/19/20 20:45) Lactated Ringers (Lr 1000 Ml Iv Solution (03/19/20 21:00) Metoprolol Succinate (Xl) Tab (Toprol Xl (03/19/20 21:00) Urine Culture (03/19/20 20:40) Medications Given in ED Current Medications Medications Dose Ordered Sig/Clare Route Start Time Stop Time Status Last Admin Dose Admin Lorazepam 1 mg ONCE ONCE IVP 03/19/20 19:15 03/19/20 19:17 DC 03/19/20 19:26 1 MG Vital Signs/I&O 03/19/20 19:14 Temp 36.6 Pulse 106 Resp 20 B/P (MAP) 128/85 (99) Pulse Ox 96 O2 Delivery Room Air Capillary Refill : Departure Communication (Admissions) Time/Spoke to Admitting Phy: 21:08 2023-patient had a 9 beat run of wide complex tachycardia, these have been printed off and sent with his chart. Still incoherent speech. Heart rate is 105 sinus rhythm, blood pressure 125/85. 2041-with poison control. Given the persistent GULLET SLITTER effects would recommend one dose of physostigmine 2 mg over about 5 minutes as it would be diagnostic. However it is not imperative that it be given. . Atropine should be kept at the bedside. 2048-Unable to find physostigmine in [place]. patrol supervisor looking for it. 2099-spoke with Dr. Stone, would like Toprol-XL 50 mg now and daily. Discussed With poison control about the physostigmine being unavailable at this time. They state is not a problem, symptoms can be controlled with Ativan. Impression Primary Impression: Anticholinergic syndrome Qualified Codes: T44.3X4A - Poisoning by other parasympatholytics [anticholinergics and antimuscarinics] and spasmolytics, undetermined, initial encounter Additional Impression: Arrhythmia Disposition: ADMITTED INPATIENT Condition: Stable Admissions Decision to Admit Reason: Admit from ER (General) Decision to Admit/Date: Mar 19, 2020 Time/Decision to Admit Time: 20:42 Departure-Patient Inst. Referrals: NO,LOCAL PHYSICIAN (PCP/Family) Primary Care Physician RANDELL BLAKE APRN Mar 19, 2020 19:22
[2020-03-19 19:36] LABS: BASOPHILS % (AUTO) 0 % (0-10); EOSINOPHILS # (AUTO) 0.1 10^3/uL (0.0-0.3); EOSINOPHILS % (AUTO) 1 % (0-10); HEMATOCRIT 47 % (40-54); HEMOGLOBIN 16.1 G/DL (13.3-17.7); LYMPHOCYTES # (AUTO) 2.3 X 10^3 (1.0-4.0); LYMPHOCYTES % (AUTO) 21 % (12-44); MEAN CORPUSCULAR HEMOGLOBIN 32 PG (25-34); MEAN CORPUSCULAR HGB CONC 34 G/DL (32-36); MEAN CORPUSCULAR VOLUME 95 FL (80-99); MEAN PLATELET VOLUME 8.9 FL (7.4-10.4); MONOCYTES # (AUTO) 1.1 X 10^3 (0.0-1.0); MONOCYTES % (AUTO) 10 % (0-12); NEUTROPHILS # (AUTO) 7.4 X 10^3 (1.8-7.8); NEUTROPHILS % (AUTO) 68 % (42-75); PLATELET COUNT 223 10^3/uL (130-400); RED CELL DISTRIBUTION WIDTH 13.7 % (10.0-14.5); WHITE BLOOD COUNT 10.9 10^3/uL (4.3-11.0)
[2020-03-19 19:46] LABS: ALBUMIN 3.8 GM/DL (3.2-4.5); CHLORIDE 107 MMOL/L (98-107); POTASSIUM 3.9 MMOL/L (3.6-5.0); SODIUM 142 MMOL/L (135-145)
[2020-03-19 19:47] LABS: CALCIUM 8.9 MG/DL (8.5-10.1)
[2020-03-19 19:49] LABS: GLUCOSE 134 MG/DL (70-105); TOTAL PROTEIN 6.2 GM/DL (6.4-8.2)
[2020-03-19 19:50] LABS: BILIRUBIN,TOTAL 1.2 MG/DL (0.1-1.0); CARBON DIOXIDE 22 MMOL/L (21-32)
[2020-03-19 19:52] LABS: ALKALINE PHOSPHATASE 75 U/L (40-136); CREATININE SERUM 1.01 MG/DL (0.60-1.30); GFR ESTIMATED > 60
[2020-03-19 19:54] LABS: BUN/CREATININE RATIO 11
[2020-03-19 19:55] LABS: SALICYLATE < 5.0 MG/DL (5.0-20.0)
[2020-03-19 19:56] LABS: ALANINE AMINOTRANSFERASE 17 U/L (0-55)
[2020-03-19 19:57] LABS: ACETAMINOPHEN < 10 UG/ML (10-30)
--- NOTE | 2020-03-19 20:10 | NUR ---
Pt resting at this time. No further needs.
[2020-03-19] MEDS ORDERED: PHYSOSTIGMINE (ANTILIRIUM) 2 MG/2 ML AMP IV ONE (20:45)
[2020-03-19] MEDS ORDERED: ATROPINE INJ 0.4 MG/ML SDV IV ONE (20:45)
[2020-03-19 20:51] LABS: BILIRUBIN,URINE NEGATIVE (NEGATIVE); CLARITY,URINE CLEAR; COLOR,URINE YELLOW; GLUCOSE, URINE (UA) NEGATIVE (NEGATIVE); KETONES,URINE NEGATIVE (NEGATIVE); LEUKOCYTE ESTERASE ,URINE 1+ (NEGATIVE); NITRITE,URINE POSITIVE (NEGATIVE); PROTEIN,URINE NEGATIVE (NEGATIVE)
[2020-03-19 20:59] LABS: AMORPHOUS SEDIMENT,UR MOD AMOR URATES /LPF; BACTERIA,URINE FEW /HPF; SQUAMOUS EPITHELIAL CELL,UR RARE /HPF
[2020-03-19 21:00] LABS: HYALINE CASTS, URINE RARE /LPF
[2020-03-19] MEDS ORDERED: meTOproloL SUCCINATE 50 MG (TOPROL XL) TAB PO SCH (21:00)
[2020-03-19] MEDS ORDERED: LACTATED RINGERS 1,000 ML IV SCH (21:00)
[2020-03-19 21:01] LABS: AMPHETAMINE SCREEN, URINE NEGATIVE (NEGATIVE); BARBITURATE SCREEN URINE NEGATIVE (NEGATIVE); BENZODIAZEPINES SCREEN URINE NEGATIVE (NEGATIVE); CANNABINOID SCREEN, URINE NEGATIVE (NEGATIVE); COCAINE SCREEN URINE NEGATIVE (NEGATIVE); METHADONE STAT NEGATIVE (NEGATIVE); METHAMPHETAMINE SCREEN URINE S NEGATIVE (NEGATIVE); OPIATE SCREEN URINE NEGATIVE (NEGATIVE); OXYCODONE STAT NEGATIVE (NEGATIVE); PROPOXYPHENE STAT NEGATIVE (NEGATIVE); TRICYCLIC ANTIDEPRESSANTS SCRE NEGATIVE (NEGATIVE)
--- NOTE | 2020-03-19 21:02 | Diagnostic Imaging Report ---
Portable erect AP chest 837h. INDICATION: Heat exhaustion The heart size is at the upper limits of normal but stable when compared to the prior exam of 02/08/2019. The lungs are clear. There is no sign of failure, pneumonia or a pleural effusion. The mediastinum is not widened. The osseous structures are intact. IMPRESSION: 1. There is no evidence for an acute cardiopulmonary abnormality. Dictated by: Dictated on workstation # [id number]
[2020-03-19 21:44] VITALS: BP 167/91
[2020-03-19] MEDS ORDERED: LORazepam INJ 2 MG/ML (ATIVAN) VIAL ONE (21:44)
[2020-03-19 22:00] VITALS: BP 163/90
[2020-03-19] MEDS: LACTATED RINGERS 1,000 ML IV SCH (22:06)
[2020-03-19] MEDS: LORazepam INJ 2 MG/ML (ATIVAN) VIAL IV PRN (22:06)
[2020-03-19 22:15] VITALS: BP 155/91
[2020-03-19 22:30] VITALS: BP 161/88
[2020-03-19 23:00] VITALS: BP 150/96
--- NOTE | 2020-03-19 23:00 | NUR ---
PT SPILLED HIS URINAL AND GOT HIS CLOTHING WET. THIS RN OFFERED TO PUT PT IN A GOWN. PT GOT ANGRY AND REFUSED TO CHANGE HIS CLOTHES. THIS RN EXPLAINED THAT HIS WET CLOTHES COULD CAUSE SKIN BREAKDOWN, HOWEVER PT STILL REFUSED TO CHANGE HIS CLOTHES. WILL TRY AGAIN LATER.
[2020-03-20] VITALS (7 sets, daily range): BP systolic 108–164; BP diastolic 45–98
[2020-03-20] MEDS: LORazepam INJ 2 MG/ML (ATIVAN) VIAL IV PRN (00:10)
--- NOTE | 2020-03-20 01:38 | NUR ---
ALBUTEROL Q2 PRN. INITIATE 02 AND TITRATE TO KEEP SAT ABOVE 90%. RT TO REASSESS NEEDED OR REEVALUATE IN 72 HOURS. Addendum: 03/20/20 at 0139 by MISTY OROPEZA RT Amended: Links added.
[2020-03-20] MEDS ORDERED: RT-ALBUTEROL SULF 2.5 MG/3 ML PRE-MIX VIAL INH PRN (01:45)
[2020-03-20 03:45] LABS: BASOPHILS % (AUTO) 0 % (0-10); EOSINOPHILS # (AUTO) 0.1 10^3/uL (0.0-0.3); EOSINOPHILS % (AUTO) 1 % (0-10); HEMATOCRIT 47 % (40-54); HEMOGLOBIN 15.6 G/DL (13.3-17.7); LYMPHOCYTES # (AUTO) 1.8 X 10^3 (1.0-4.0); LYMPHOCYTES % (AUTO) 21 % (12-44); MEAN CORPUSCULAR HEMOGLOBIN 32 PG (25-34); MEAN CORPUSCULAR HGB CONC 34 G/DL (32-36); MEAN CORPUSCULAR VOLUME 96 FL (80-99); MONOCYTES # (AUTO) 0.8 X 10^3 (0.0-1.0); MONOCYTES % (AUTO) 9 % (0-12); NEUTROPHILS # (AUTO) 5.9 X 10^3 (1.8-7.8); NEUTROPHILS % (AUTO) 68 % (42-75); PLATELET COUNT 201 10^3/uL (130-400); RED CELL DISTRIBUTION WIDTH 13.7 % (10.0-14.5); WHITE BLOOD COUNT 8.6 10^3/uL (4.3-11.0)
[2020-03-20 04:10] LABS: CHLORIDE 106 MMOL/L (98-107); POTASSIUM 4.2 MMOL/L (3.6-5.0); SODIUM 142 MMOL/L (135-145)
[2020-03-20] MEDS: LACTATED RINGERS 1,000 ML IV SCH (04:10)
[2020-03-20 04:11] LABS: CALCIUM 8.1 MG/DL (8.5-10.1)
[2020-03-20 04:12] LABS: GLUCOSE 114 MG/DL (70-105)
[2020-03-20 04:14] LABS: CARBON DIOXIDE 24 MMOL/L (21-32)
[2020-03-20 04:15] LABS: PHOSPHORUS 4.6 MG/DL (2.3-4.7)
[2020-03-20 04:16] LABS: CREATININE SERUM 0.79 MG/DL (0.60-1.30); GFR ESTIMATED > 60
[2020-03-20 04:17] LABS: BUN/CREATININE RATIO 10
[2020-03-20 04:18] LABS: MAGNESIUM 1.9 MG/DL (1.6-2.4)
--- NOTE | 2020-03-20 04:43 | Pulmonary Consultation ---
History of Present Illness History of Present Illness Date Seen by Provider: Mar 20, 2020 Time Seen by Provider: 04:37 Date of Admission History of Present Illness 64yo with psychiatric hx presented to ED via EMS secondary to possible seizure while at [facility]. He had a bottle of Benadryl in his pocket with 7 left, 100 were in the bottle originally. While in the ED pt had 9 beat run of Vtach. Poison control was called per ED and recommendations were given. PT was admitted to ICU for close observation. Allergies and Home Medications Allergies Coded Allergies: Phenothiazines (Verified Allergy, Unknown, 12/20/17) Home Medications Apixaban 5 Mg Tablet, 5 MG PO BID Prescribed by: DWAYNE ALEX on 02/12/19 1613 Diltiazem HCl 240 Mg Cap.er.24h, 240 MG PO DAILY Prescribed by: DWAYNE ALEX on 02/12/19 1613 Past Twcxoay-Mvqlkn-Mpsrrf Hx Patient Social History Alcohol Use: Rarely Uses Recreational Drug Use: No Smoking Status: Current Everyday Smoker Type Used: Cigarettes 2nd Hand Smoke Exposure: Yes Recent Foreign Travel: No Contact w/Someone Who Travel: No Recent Infectious Disease Expo: No Recent Hopitalizations: No Immunizations Up To Date Tetanus Booster (TDap): Unknown PED Vaccines UTD: No Date of Influenza Vaccine: May 29, 2018 Seasonal Allergies Seasonal Allergies: No Past Medical History Surgeries: Yes ( COLON RESECTION FOR BENIGN TUMOR; PILONIDAL CYST X 2, hernia ) Abdominal, Appendectomy, Bowel Surgery Respiratory: Yes Sleep Apnea, COPD Currently Using CPAP: No Cardiac: Yes Chronic Edema/Swelling Neurological: No Reproductive Disorders: No Sexually Transmitted Disease: No HIV/AIDS: No Genitourinary: No Gastrointestinal: Yes (COLON RESECTION FOR BENIGN TUMOR) Irritable Bowel Musculoskeletal: Yes Chronic Back Pain Endocrine: No HEENT: No Loss of Vision: Denies Hearing Impairment: Denies Cancer: No Psychosocial: Yes (NON-COMPLIANT WITH MEDICATIONS) Sleep Difficulties, Anxiety, Schizophrenia Integumentary: No Blood Disorders: No Adverse Reaction/Blood Tranf: No (N/A) Family Medical History No Pertinent Family Hx Review of Systems Time Seen by Provider: 04:40 Sepsis Event Evaluation Height, Weight, BMI Height: 6'0.00" Weight: 229lbs. 4.8oz. 104.277490ow; 40.65 BMI Method:Estimated Exam Exam Vital Signs Date Time Temp Pulse Resp B/P (MAP) Pulse Ox O2 Delivery O2 Flow Rate FiO2 03/20/20 04:13 37.2 03/20/20 03:14 97 OxyMask 4.00 03/20/20 03:00 86 23 160/68 (98) 94 OxyMask 4.00 03/20/20 02:00 86 35 161/79 (106) 93 OxyMask 4.00 03/20/20 01:28 36.6 106 96 21 03/20/20 01:00 90 03/20/20 01:00 89 27 164/98 (120) 95 OxyMask 4.00 03/20/20 00:39 OxyMask 4.00 03/20/20 00:00 90 22 139/77 (97) 94 Nasal Cannula 2.00 03/20/20 00:00 97 Nasal Cannula 2.00 03/19/20 23:30 95 27 98 Nasal Cannula 2.00 03/19/20 23:00 103 17 150/96 (114) 94 Nasal Cannula 2.00 03/19/20 22:30 103 24 161/88 (112) 89 Nasal Cannula 2.00 03/19/20 22:20 Nasal Cannula 2.00 03/19/20 22:15 101 21 155/91 (112) 95 Room Air 03/19/20 22:11 95 Room Air 03/19/20 22:00 105 13 163/90 (114) 95 Room Air 03/19/20 21:58 106 03/19/20 21:44 36.7 102 18 167/91 (116) 93 Room Air 03/19/20 21:30 36.6 102 19 155/87 (99) 96 Room Air 03/19/20 19:14 36.6 106 20 128/85 (99) 96 Room Air I & O 03/20/20 07:00 Intake Total 3100 ml Output Total 800 ml Balance 2300 ml Height & Weight Height: 6'0.00" Weight: 229lbs. 4.8oz. 104.300914re; 40.65 BMI Method:Estimated General Appearance: No Apparent Distress, WD/WN HEENT: PERRL/EOMI, TMs Normal, Normal ENT Inspection (dry mucous membrane, small minimally reactive pupils, tachycardia, flushed skin, incoherent speech) Respiratory: No Accessory Muscle Use, No Respiratory Distress Cardiovascular: Normal Peripheral Pulses, Tachycardia Capillary Refill: Less Than 3 Seconds Extremity: Normal Capillary Refill, Normal Inspection Neurologic/Psychiatric: Alert Skin: Normal Color, Warm/Dry, Other Results Lab Laboratory Tests 03/19/20 19:25 03/20/20 02:45 Assessment/Plan Assessment/Plan possible benedryl OD -Poison control is following Tachycardia - -Cardiology following -Toprol XL was started Hx of Schizophrenia CARMEN OROPEZA DO Mar 20, 2020 04:43
--- NOTE | 2020-03-20 07:53 | NUR ---
MALE PCT CAME TO THIS NURSE TO REPORT THAT PATIENT HAD ATTEMPTED TO PUNCH HIM. PCT WAS ASSISTING PT WITH OXYGEN TUBING PER PATIENT REQUEST, WHEN PATIENT SWUNG ARM HARD TOWARDS PCT FACE.
--- NOTE | 2020-03-20 08:00 | NUR ---
THIS RN ENTERED PATIENTS ROOM AT THIS TIME. PATIENT SITTING IN BED. NURSE INTRODUCED SELF, ET ASKED PATIENT IF I COULD LISTEN TO HIS LUNGS. 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 THIS RN INTRODUCED LAB TO PATIENT ET TOLD PATIENT HE NEEDED TO DRAW SOME LABS FROM PATIENT. AT THIS TIME PATIENT THEN STATED HE WANTED TO LEAVE, HE WANTED HIS PAPERS TO SIGN SO HE COULD GET OUT OF HERE.
--- NOTE | 2020-03-20 08:04 | Diagnostic Imaging Report ---
Indication: Anticholinergic toxidrome. Study compared 03/19. Findings: Some prominence of the interstitial lung markings as well as perihilar groundglass opacities which may be edema or inflammatory/infectious. This is increased. Heart size stable. No effusion or pneumothorax. Impression: Worsened perihilar groundglass and interstitial opacities and no other change. Dictated by: Dictated on workstation # [id number]
--- NOTE | 2020-03-20 08:31 | NUR ---
PATIENT LEFT ICU AT THIS TIME, PERSONAL BELONGINGS WITH PATIENT.
[2020-03-20] MEDS ORDERED: meTOproloL SUCCINATE 50 MG (TOPROL XL) TAB PO SCH (09:00)
--- NOTE | 2020-03-20 12:50 | Discharge Summary ---
Discharge Summary Hospital Course Problems/Dx: (1) Medication overdose Status: Acute Qualifiers: (2) Schizophrenia Status: Chronic Hospital Course Date of Admission: Mar 19, 2020 at 20:33 Admission Diagnosis : Medication overdose [facility] Date of Discharge: 03/20/20 Discharge Diagnosis: Medication overdose Hospital Course: Shin Alvarez is a 64-year-old male with past medical history of schizophrenia who presented after possible Benadryl overdose. He was reportedly was found outside of the [facility] and there is concern that he had a possible seizure. He was unable to answer questions and was found with a bottle of Benadryl in his pocket. It was suspected that he may have overdosed on this medication. He was admitted to the intensive care unit and his mental status improved. He decided to leave AGAINST MEDICAL ADVICE before I was able to evaluate him. Labs and Pending Lab Test: Laboratory Tests 03/19/20 19:25: White Blood Count 10.9, Red Blood Count 4.98, Hemoglobin 16.1, Hematocrit 47, Mean Corpuscular Volume 95, Mean Corpuscular Hemoglobin 32, Mean Corpuscular Hemoglobin Concent 34, Red Cell Distribution Width 13.7, Platelet Count 223, Mean Platelet Volume 8.9, Neutrophils (%) (Auto) 68, Lymphocytes (%) (Auto) 21, Monocytes (%) (Auto) 10, Eosinophils (%) (Auto) 1, Basophils (%) (Auto) 0, Neutrophils # (Auto) 7.4, Lymphocytes # (Auto) 2.3, Monocytes # (Auto) 1.1H, Eosinophils # (Auto) 0.1, Basophils # (Auto) 0.0, Sodium Level 142, Potassium Level 3.9, Chloride Level 107, Carbon Dioxide Level 22, Anion Gap 13, Blood Urea Nitrogen 11, Creatinine 1.01, Estimat Glomerular Filtration Rate > 60, BUN/Creatinine Ratio 11, Glucose Level 134H, Calcium Level 8.9, Corrected Calcium 9.1, Magnesium Level 2.0, Total Bilirubin 1.2H, Aspartate Amino Transf (AST/SGOT) 27, Alanine Aminotransferase (ALT/SGPT) 17, Alkaline Phosphatase 75, Total Protein 6.2L, Albumin 3.8, Salicylates Level < 5.0L, Acetaminophen Level < 10L, Serum Alcohol < 10 03/19/20 20:40: Urine Color YELLOW, Urine Clarity CLEAR, Urine pH 6.0, Urine Specific [place] 1.025H, Urine Protein NEGATIVE, Urine Glucose (UA) NEGATIVE, Urine Ketones NEGATIVE, Urine Nitrite POSITIVEH, Urine Bilirubin NEGATIVE, Urine Urobilinogen 4.0, Urine Leukocyte Esterase 1+H, Urine RBC (Auto) 1+H, Urine RBC NONE, Urine WBC 5-10H, Urine Squamous Epithelial Cells RARE, Urine Crystals PRESENTH, Urine Amorphous Sediment MOD BRANDY URATESH, Urine Bacteria FEWH, Urine Casts NONE, Uri ne Hyaline Casts RARE, Urine Mucus SMALLH, Urine Culture Indicated YES, Urine Opiates Screen NEGATIVE, Urine Oxycodone Screen NEGATIVE, Urine Methadone Screen NEGATIVE, Urine Propoxyphene Screen NEGATIVE, Urine Barbiturates Screen NEGA TIVE, Ur Tricyclic Antidepressants Screen NEGATIVE, Urine Phencyclidine Screen NEGATIVE, Urine Amphetamines Screen NEGATIVE, Urine Methamphetamines Screen NEGATIVE, Urine Benzodiazepines Screen NEGATIVE, Urine Cocaine Screen NEGATIVE, Urine Cannabinoids Screen NEGATIVE 03/20/20 02:45: White Blood Count 8.6, Red Blood Count 4.85, Hemoglobin 15.6, Hematocrit 47, Mean Corpuscular Volume 96, Mean Corpuscular Hemoglobin 32, Mean Corpuscular Hemoglobin Concent 34, Red Cell Distribution Width 13.7, Platelet Count 201, Mean Platelet Volume 9.0, Neutrophils (%) (Auto) 68, Lymphocytes (%) (Auto) 21, Monocytes (%) (Auto) 9, Eosinophils (%) (Auto) 1, Basophils (%) (Auto) 0, Neutrophils # (Auto) 5.9, Lymphocytes # (Auto) 1.8, Monocytes # (Auto) 0.8, Eosinophils # (Auto) 0.1, Basophils # (Auto) 0.0, Sodium Level 142, Potassium Level 4.2, Chloride Level 106, Carbon Dioxide Level 24, Anion Gap 12, Blood Urea Nitrogen 8, Creatinine 0.79, Estimat Glomerular Filtration Rate > 60, BUN/Creatinine Ratio 10, Glucose Level 114H, Calcium Level 8.1L, Magnesium Level 1.9, Phosphorus Level 4.6, B-Type Natriuretic Peptide 57.8 Home Meds Active Eliquis (Apixaban) 5 Mg Tablet 5 Mg PO BID Diltiazem 24Hr Cd (Diltiazem HCl) 240 Mg Cap.er.24h 240 Mg PO DAILY Assessment/Pt Instructions Patient left AGAINST MEDICAL ADVICE Discharge Planning: <30 minutes discharge planning Consultations Pulmonology Discharge Physical Examination Vital Signs Vital Signs Date Time Temp Pulse Resp B/P (MAP) Pulse Ox O2 Delivery O2 Flow Rate FiO2 03/20/20 08:00 36.7 03/20/20 06:45 68 03/20/20 06:00 19 94 OxyMask 4.00 03/20/20 01:28 21 Allergies: Coded Allergies: Phenothiazines (Verified Allergy, Unknown, 12/20/17) Discharge Summary Date of Admission Mar 19, 2020 at 20:33 Date of Discharge Mar 20, 2020 at 08:31 Discharge Date: Mar 20, 2020 Discharge Time: 08:31 Admission Diagnosis Medication overdose Consults/Procedures Consulations Pulmonology Discharge Diagnosis (1) Left against medical advice Status: Acute (2) Medication overdose Status: Acute Qualifiers: (3) Schizophrenia Status: Chronic Clinical Quality Measures DVT/VTE Risk/Contraindication: Risk Factor Score Per Nursin RFS Level Per Nursing on Admit: 4+=Very High TANISHA RIVERA MD Mar 20, 2020 12:50
== END 2020-03-20 08:31 | disposition left against medical advice (07) ==
LOC: EDUNIT# 19:09 → ER 19:10 → ICU 20:33 → UNDOADMOB 20:33 → ICU 21:49 → UNDODISOB 03-20 08:31
PROVIDERS: ADMIT Internal Medicine; ATTEND Internal Medicine
DX: T45.0X4A Poisoning by antiallergic and antiemetic drugs, undetermined, initial encounter (principal); F20.9 Schizophrenia, unspecified; R00.0 Tachycardia, unspecified; F17.210 Nicotine dependence, cigarettes, uncomplicated; J44.9 Chronic obstructive pulmonary disease, unspecified; G47.30 Sleep apnea, unspecified; K58.9 Irritable bowel syndrome, unspecified; M54.9 Dorsalgia, unspecified; F41.9 Anxiety disorder, unspecified; Z91.19 Patient's noncompliance with other medical treatment and regimen; Z79.899 Other long term (current) drug therapy; Z88.8 Allergy status to other drugs, medicaments and biological substances; Z79.01 Long term (current) use of anticoagulants; Z11.2 Encounter for screening for other bacterial diseases
CPT/HCPCS: 71045 ×2; 80048; 80053; 80306; 81000; 83735 ×2; 83880; 84100; 85025 ×2; 87077; 87081; 87088; 87186; 93005; 96361; 96374; 99285; G0480 ×3; 36415; 80320; 80329; G0378